=== PATIENT | male | born 1940 | race Caucasian/White ===

== ENCOUNTER 2023-08-28 13:32 | Outpatient (CLI) | payer MEDICARE, SELFPAY | END 2023-08-28 13:33 | disposition home or self-care (01) | PROVIDERS: PCP Family Medicine; Visit Provider Family Medicine | DX: R63.4 Abnormal weight loss (principal); I10 Essential (primary) hypertension; M17.0 Bilateral primary osteoarthritis of knee; I48.11 Longstanding persistent atrial fibrillation; R53.1 Weakness; Z13.29 Encounter for screening for other suspected endocrine disorder | CPT/HCPCS: 80048; 80076; 82607; 84439; 84443 ==

== ENCOUNTER 2024-01-01 12:25 | Outpatient (CLI) | payer MEDICARE, SELFPAY | END 2024-01-01 12:26 | disposition home or self-care (01) | PROVIDERS: PCP Family Medicine; Visit Provider Family Medicine | DX: I48.91 Unspecified atrial fibrillation (principal); M10.9 Gout, unspecified | CPT/HCPCS: 84550; 85610 ==

== ENCOUNTER 2024-11-12 13:57 | Outpatient (CLI) | payer MEDICARE, SELFPAY | END 2024-11-12 13:58 | disposition home or self-care (01) | PROVIDERS: PCP Family Medicine; Visit Provider Family Medicine | DX: R94.6 Abnormal results of thyroid function studies (principal); I10 Essential (primary) hypertension | CPT/HCPCS: 80048; 84439; 84443 ==

== ENCOUNTER 2024-12-13 09:04 | Outpatient (CLI) | payer MEDICARE, SELFPAY | END 2024-12-13 09:05 | disposition home or self-care (01) | PROVIDERS: PCP Family Medicine; Visit Provider Internal Medicine | DX: R53.1 Weakness (principal); R19.5 Other fecal abnormalities | CPT/HCPCS: A0425; A0427 ==

== ENCOUNTER 2024-12-13 09:46 | Inpatient (IN) | payer MEDICARE, SELFPAY ==
[2024-12-13] VITALS (23 sets, daily range): BP systolic 76–131; BP diastolic 53–92; PULSE 92–118; RESP 16–22; TEMP 35.9–36.6; O2SAT 89–100; BMI 23.7; BMI 23.3
--- OUTSIDE RECORDS SUMMARY | 2024-12-13 09:50 | XMS_ITS | Clinical Summary ---
Author Organization [facility] Address [address] [place] [address] Care Team Providers Care Lead Man Over All Dies In [employer] Name Role Phone Elsewhere, Pcp Primary Care Provider Unavailabl e Source Comments Patient records contain information from all sites at [facility]. For routine questions regarding patient records, call [phone] during business hours, M-F 8:00 AM - 5:00 PM Central Time. Record requests for emergency care only can be directed to [phone] at any time.[facility] Allergies No known active allergies Medications warfarin (COUMADIN) 5 mg tablet Take 5 mg by mouth 3 (three) times a week. Take as directed per After Visit Summary. Monday, Mon, Mon Active warfarin (COUMADIN) 2.5 mg tablet Take 2.5 mg by mouth 4 (four) times a week. Take as directed per After Visit Summary. Tue, Thur, Sat, Sun Active quinapriL (ACCUPRIL) 5 mg tablet Take by mouth daily. Active colchicine (COLCRYS) 0.6 mg tablet Take 0.6 mg by mouth daily. 02/08/2022 Active dilTIAZem CD (CARDIZEM CD/CARTIA XT) 120 mg 24 hr capsule Take 120 mg by mouth daily. 04/06/2022 Active furosemide (LASIX) 40 mg tablet Take 40 mg by mouth daily. 04/27/2022 Active oxyCODONE-aceta minophen (PERCOCET) 5-325 mg per tablet Take 1 tablet by mouth every 6 (six) hours as needed. for pain 04/26/2022 Active predniSONE (DELTASONE) 20 mg tablet TAKE ONE TABLET BY MOUTH TWICE A DAY FOR FOUR DAYS THEN ONE TABLET DAILY FOR FOUR DAYS 02/08/2022 Active acetaminophen (TYLENOL) 500 mg tablet Take 500 mg by mouth every 6 (six) hours as needed for pain. Active Active Problems No known active problems Social History Tobacco Use Types Packs/Day Years Used Date Smoking Tobacco: Never Smokeless Tobacco: Never Alcohol Use Standard Drinks/Week Comments Yes 1 (1 standard drink = 0.6 oz pur e alcohol) Nutrition Answer Date Recorded Nutrition: EVOO Fat Source Unknown 04/15 Nutrition: Servings of Fruits/Vegetables per Day Not on file 04/15/2022 Dental Answer Date Recorded Dental: Regular Dentist Unknown 04/15/20 Sex and Gender Information Value Date Recorded Sex Assigned at Not on file Legal Sex Male 4:50 PM ELECTRONIC PUBLICATIONS SPECIALIST Gender Identity Not on file Sexual Orientation Not on file Last Filed Vital Signs Vital Sign Reading Time Taken Comments Blood Pressure 128/79 12/28/2023 1:27 AM ELECTRONIC PUBLICATIONS SPECIALIST Pulse 114 12/28/2023 1:27 AM ELECTRONIC PUBLICATIONS SPECIALIST Temperature 36 C (96.8 F) 12/28/2023 1:27 AM ELECTRONIC PUBLICATIONS SPECIALIST Respiratory Rate 18 12/28/2023 1:27 AM ELECTRONIC PUBLICATIONS SPECIALIST Oxygen Saturation 97% 12/28/2023 1:27 AM ELECTRONIC PUBLICATIONS SPECIALIST Inhaled Oxygen Concentration - - Weight 91.9 kg (202 lb 9.6 oz) 04/15/2022 12:33 PM CDT Height 190.5 cm (6' 3) 12/28/2023 1:40 AM ELECTRONIC PUBLICATIONS SPECIALIST Body Mass Index 24.66 04/15/2022 12:33 PM CDT Plan of Treatment Health Maintenance Due Date Last Done Comments Zoster Vaccines (1 of 2) 1988 RSV vaccine - (32-3 6 weeks) or 60+ years (1 - 1-dose 75+ series) 2013 Creatinine Level (Kidney Function Test) 04/15/2023 04/15/2022 Potassium Level 04/15/2023 04/15/2022 Sodium Level 04/15/2023 04/15/2022 COVID-19 Vaccine (4 - 2023-2 5 season) 2024 07/30/2021, 12/26/2020, 12/05/2020 Influenza Vaccine (#1) 2024 08/28/2023 Depression Screening (Annual PHQ-2) 10/23/2024 Fall Risk Screen (Annual) 10/23/2024 DTaP,Tdap,and Td Vaccines (3 - Td or Tdap) 04/16/2030 04/16/2020, 11/07/2008 Pneumococcal vaccine (50+ years) Completed 03/25/2016, 11/07/2008 IPV Vaccines Aged Out No longer eligi ble based on patient's age to complete this topic Procedures Procedure Name Priority Date/Time Associated Diagnosis Comments BASIC METABOLIC PANEL, S/P STAT 04/15/2022 1:09 PM CDT from Last 3 Months or Most Recently Relevant to Health Maintenance Results * Basic Metabolic Panel (04/15/2022 1:09 PM CDT) Potassium, P 4.3 3.6 - 5.2 mmol/L 04/15/2022 1:30 PM CDT NPRG Sodium, P 138 135 - 145 mmol/L 04/15/2022 1:30 PM CDT NPRG Chloride, P 99 98 - 107 mmol/L 04/15/2022 1:30 PM CDT NPRG Bicarbonate, P 28 22 - 29 mmol/L 04/15/2022 1:30 PM CDT NPRG Anion Gap, P 11 7 - 15 04/15/2022 1:30 PM CDT NPRG BUN (Blood Urea Nitrogen), P 22 8 - 24 mg/dL 04/15/2022 1:30 PM CDT NPRG Creatinine 1.05 0.74 - 1.35 mg/dL 04/15/2022 1:30 PM CDT NPRG eGFR-Black/Afric an Azerbaijani 76 >=60 mL/min/BSA 04/15/2022 1:30 PM CDT NPRG Comment: ----ADDITIONAL INFORMATION---- Estimated GFR calculated using the 2009 CKD_EPI creatinine equation. eGFR Non-Black/Anju n Azerbaijani 65 >=60 mL/min/BSA 04/15/2022 1:30 PM CDT NPRG Comment: ----ADDITIONAL INFORMATION---- Estimated GFR calculated using the 2009 CKD_EPI creatinine equation. Calcium, Total, P 9.5 8.8 - 10.2 mg/dL 04/15/2022 1:30 PM CDT NPRG Glucose, P 113 70 - 140 mg/dL 04/15/2022 1:30 PM CDT NPRG Blood (Blood, Venous) 04/15/2022 1:09 PM CDT 04/15/2022 1:12 PM CDT us Jimmy Treadwell M.D. LAB BLOOD ADD-ON Final Resu lt [facility] [address] [place] [address], [place] NPRG [facility] [address] [place] [address] from Last 3 Months or Most Recently Relevant to Health Maintenance Insurance [facility] Care Teams Lead Man Over All Dies In [employer] Relationship Specialty Start Date End Date Elsewhere, Pcp PCP - General Internal Medicine 04/15/22
--- NOTE | 2024-12-13 10:05 | ED.GENADULT ---
HPI - General Adult General Chief complaint: Diarrhea Stated complaint: Dehydration Time Seen by Provider: 12/13/24 09:52 History of Present Illness HPI narrative: Patient is a 84-year-old gentleman who lives alone. He is anticoagulated due to atrial fibrillation. He developed diarrhea and loose stools overnight. He had no nausea or vomiting no overt abdominal pain. He has had no changes diet recently. He was very concerned as he noted the stool to be a maroon color as the diarrhea progressed. Patient did not lose consciousness or become lightheaded. Patient otherwise been in his usual state of health. There has been no changes in his medications. Room patient takes Coumadin daily. After calling his son is done directed ambulance to [facility] with and they brought him to the emergency room. He is noted to be mildly tachycardic with a pulse of 110 and a blood pressure roughly 100/50. He has had no further loose stools since arriving. He is feeling fine. He did get some normal saline EN route. Related Data Home Medications ?Medication ?Instructions ?Recorded ?Confirmed furosemide 40 mg tablet 40 mg PO DAILY 12/13/24 12/13/24 lisinopril 10 mg tablet 10 mg PO DAILY 12/13/24 12/13/24 Previous Rx's ?Medication ?Instructions ?Recorded warfarin 5 mg tablet 2.5 - 5 mg PO DAILY #100 tabs 08/06/24 carvedilol 12.5 mg tablet 12.5 mg PO BID #180 tabs 11/12/24 diltiazem HCl 120 mg 120 mg PO DAILY #90 ea 11/12/24 capsule,extended release 24 hr Allergies Allergy/AdvReac Type Severity Reaction Status Date / Time No Known Drug Allergies Allergy Verified 12/13/24 10:01 Review of Systems Status of ROS: Reports: 10 or more systems reviewed and unremarkable except as noted in History and below [facility] Medical History Alcohol abuse ?F10.10 - Alcohol abuse, uncomplicated (ICD-10) Atrial fibrillation ?I48.91 - Unspecified atrial fibrillation (ICD-10) Hypertension ?I10 - Essential (primary) hypertension (ICD-10) Congestive heart failure ?I50.9 - Heart failure, unspecified (ICD-10) Peripheral neuropathy ?G62.9 - Polyneuropathy, unspecified (ICD-10) DJD (degenerative joint disease) of knee ?M17.10 - Unilateral primary osteoarthritis, unspecified knee (ICD-10) Rheumatoid arthritis ?M06.9 - Rheumatoid arthritis, unspecified (ICD-10) Hearing loss in left ear ?H91.92 - Unspecified hearing loss, left ear (ICD-10) Gout ?M10.9 - Gout, unspecified (ICD-10) Ascending aorta dilatation ?I77.810 - Thoracic aortic ectasia (ICD-10) Edema ?R60.9 - Edema, unspecified (ICD-10) Pelvis fracture ?S32.9XXA - Fracture of unspecified parts of lumbosacral spine and pelvis, initial encounter for closed fracture (ICD-10) Surgical History Status post mastoidectomy ?Z90.89 - Acquired absence of other organs (ICD-10) S/P inguinal hernia repair ?Z98.890 - Other specified postprocedural states (ICD-10) ?Z87.19 - Personal history of other diseases of the digestive system (ICD-10) S/P hemorrhoidectomy ?Z98.890 - Other specified postprocedural states (ICD-10) ?Z87.19 - Personal history of other diseases of the digestive system (ICD-10) S/P cataract extraction ?Z98.49 - Cataract extraction status, unspecified eye (ICD-10) Social History What is your current living situation?: I presently have a place to live In the past 12 months, utilities in danger of being shut off: no In past 12 months, lack of transportation kept you from medical appts, meetings, work, or getting things needed for daily living: no In the past 12 mos, have been you worried that your food would run out before you had money to buy more?: never true In the past 12 mos, the food you bought just didn't last and you didn't have money to buy more?: never true Smoking Status: Former smoker How often do you have a drink containing alcohol: 2-4 times a month How many standard drinks containing alcohol do you have on a typical day: 1 or 2 How often do you have six or more drinks on one occasion: Never AUDIT-C Alcohol total score: 2 Non-prescribed substance use: denies use How often does anyone, including family, friends and others, physically hurt you: never How often does anyone, including family, friends and others, insult or talk down to you: never How often does anyone, including family, friends and others, threaten you with harm: never How often does anyone, including family, friends and others, scream or curse at you: never Exam Narrative: Exam Narrative: EXAM GENERAL: Patient appears comfortable and well. EYES: No scleral icterus. ENT: Tympanic membranes and oropharynx normal. THYROID: no thyroid nodules or thyromegaly. LYMPH: No supraclavicular or cervical lymphadenopathy. SKIN: Visible skin seen during exam normal or with benign process only. EXT: Chronic appearing lower extremity edema 1+ bilaterally. HEART: Regular rate distant heart tones. LUNGS: Clear to auscultation bilaterally with no crackles or wheezes. ABD: Soft, non tender, non distended. PSYCH: Good eye contact, speech is not pressured. Const: Vital Signs, click to edit/add: Vital Signs - 24 hr 12/13/24 09:50 12/13/24 09:58 12/13/24 10:00 Temperature 96.6 F L Pulse Rate 107 H Pulse Rate [Pulse Oximeter] 92 Respiratory Rate 16 Blood Pressure 113/73 Blood Pressure [Ri ght Upper Arm] 113/73 Pulse Oximetry 98 98 Oxygen Delivery Me od Room Air 12/13/24 10:15 12/13/24 10:30 12/13/24 10:35 Temperature Pulse Rate 116 H 97 101 H Pulse Rate [Pulse Oximeter] Respiratory Rate 16 Blood Pressure 100/72 Blood Pressure [Ri ght Upper Arm] Pulse Oximetry 93 98 98 Oxygen Delivery Ms thod 12/13/24 10:36 12/13/24 10:45 12/13/24 11:00 Temperature Pulse Rate 107 H 104 H 104 H Pulse Rate [Pulse Oximeter] Respiratory Rate Blood Pressure Blood Pressure [Ri ght Upper Arm] Pulse Oximetry 95 97 100 Oxygen Delivery Ms thod 12/13/24 11:02 12/13/24 11:15 Temperature Pulse Rate 118 H 100 Pulse Rate [Pulse Oximeter] Respiratory Rate Blood Pressure 106/76 Blood Pressure [Ri ght Upper Arm] Pulse Oximetry 89 97 Oxygen Delivery Me thod Course Course ED Course: We will begin evaluation with CBC PT INR comprehensive metabolic panel and begin hydration. Vital Signs Vital signs: Initial Vital Signs Temperature 96.6 F L 12/13/24 09:50 Temperature Source Temporal Artery Scan 12/13/24 09:50 Pulse Rate 92 12/13/24 09:50 Respiratory Rate 16 12/13/24 09:50 Blood Pressure 113/73 12/13/24 09:50 Blood Pressure Mean 86 12/13/24 09:50 Pulse Oximetry 98 12/13/24 09:50 Oxygen Delivery Method Room Air 12/13/24 09:50 Vital Signs Temperature 96.6 F L 12/13/24 09:50 Pulse Rate 92 12/13/24 09:50 Respiratory Rate 16 12/13/24 09:50 Blood Pressure 113/73 12/13/24 09:50 Pulse Oximetry 98 12/13/24 09:50 Oxygen Delivery Method Room Air 12/13/24 09:50 Temperature 96.6 F L 12/13/24 09:50 Pulse Rate 100 12/13/24 11:15 Respiratory Rate 16 12/13/24 10:35 Blood Pressure 106/76 12/13/24 11:02 Pulse Oximetry 97 12/13/24 11:15 Oxygen Delivery Method Room Air 12/13/24 09:50 Medical Decision Making MDM Narrative Medical decision making narrative: Patient is a 84-year-old gentleman who woke with a diarrhea that turned bloody overnight. He does take Coumadin for atrial fibrillation. We did send off an INR found to be 4.0. Also noted on his blood work was a hemoglobin of 9.9 and a potassium of 6.0. Month certain that that is an accurate potassium and should be repeated. We have given him 1 L of normal saline. I have not done a CT scan as patient has no abdominal pain. This point I do think that the patient is medically stable but does need hospitalization. I did review the case with hospitalist and they have graciously accepted to take over care. Lab Data Labs: Lab Results 12/13/24 Range/Units 10:13 WBC 9.13 (4.50-11.00) K/uL RBC 2.59 L (4.30-5.90) m/uL Hgb 9.9 L (13.5-17.5) gm/dL Hct 30.3 L (37.0-53.0) % MCV 117 H (80-100) fL MCH 38 H (26-34) pg MCHC 33 (32-36) gm/dL RDW Coeff of Daniela 14.1 (11.5-15.5) % Plt Count 193 (140-440) K/uL Neut % (Auto) 69.3 (42.0-72.0) % Lymph % (Auto) 21.7 (20-44) % Evangeline % (Auto) 8.2 (0.0-11.0) % Eos % (Auto) 0.4 (0.0-7.0) % Baso % (Auto) 0.2 (0.0-3.0) % Neut # (Auto) 6.32 (1.7-7.0) K/uL Lymph # (Auto) 1.98 (0.90-2.90) K/uL Evangeline # (Auto) 0.70 (0.00-0.90) K/UL Eos # (Auto) 0.04 (0.00-0.50) K/uL Baso # (Auto) 0.02 (0.00-0.30) K/uL Abs Immat Gran (auto) 0.02 (0.00-0.30) K/uL Imm/Tot Granulo (auto) 0.2 % INR 4.00 H (0.91-1.10) Sodium 136 (135-149) mmol/L Potassium 6.0 H (3.6-5.1) mmol/L Chloride 105 (96-114) mmol/L Carbon Dioxide 25 (20-32) mmol/L Anion Gap 6 L (7-15) mEq/L BUN 63 H (7-30) mg/dL Creatinine 1.2 (0.5-1.5) mg/dL Estimated Creat Clear 52.81 Estimated GFR 59 ml/min Glucose 141 H (60-115) mg/dL Calcium 8.4 (8.4-10.6) mg/dL Total Bilirubin 0.5 (0.1-1.5) mg/dL AST 19 (12-35) U/L ALT 11 (4-50) U/L Alkaline Phosphatase 50 (40-150) U/L Total Protein 5.8 L (6.0-8.3) g/dL Albumin 3.3 (3.3-5.0) g/dL Discharge Plan Discharge Clinical Impression: GI bleed Patient Disposition: Admitted As Observation Condition: Stable Activity Level: Other Discharge Diet: Other Prescriptions: No Action carvedilol 12.5 mg tablet 12.5 mg PO BID Qty: 180 3RF diltiazem HCl 120 mg capsule,extended release 24hr 120 mg PO DAILY Qty: 90 3RF furosemide 40 mg tablet 40 mg PO DAILY lisinopril 10 mg tablet 10 mg PO DAILY warfarin 5 mg tablet 2.5 - 5 mg PO DAILY Qty: 100 3RF Protocol: Dose Management Condition: Monday Dose/Route: 2.5 mg Instruction: 0.5 x 5 mg tablets Condition: Monday Dose/Route: 5 mg Instruction: 1 x 5 mg tablet Condition: Monday Dose/Route: 2.5 mg Instruction: 0.5 x 5 mg tablets Condition: Monday Dose/Route: 5 mg Instruction: 1 x 5 mg tablet Condition: Dose/Route: 2.5 mg Instruction: 0.5 x 5 mg tablets Condition: Monday Dose/Route: 5 mg Instruction: 1 x 5 mg tablet Condition: Monday Dose/Route: 2.5 mg Instruction: 0.5 x 5 mg tablets Protocol Text: Adjustment Start Date: 02/08/24 INR Value: 2.4 INR Date: 02/08/24 Recheck Date: 03/07/24 Rx Instructions: Guillen 2.5 MG, M 5 MG, Tu 2.5 MG, W 5 MG, Th 2.5 MG, F 5 MG, Sa 2.5 MG Follow Up/Referrals: Calos Reddy MD [Primary Care Provider] - Stand Alone Forms: [employer] Info Instructions
[2024-12-13 10:26] LABS: Basophils Absolute Auto 0.02 K/uL (0.00-0.30); Basophils Percent Auto 0.2 % (0.0-3.0); Eosinophils Absolute Auto 0.04 K/uL (0.00-0.50); Eosinophils Percent Auto 0.4 % (0.0-7.0); Hematocrit 30.3 % (37.0-53.0); Hemoglobin* 9.9 gm/dL (13.5-17.5); Immature Granulocytes Abs Auto 0.02 K/uL (0.00-0.30); Immature Granulocytes Pct Auto 0.2 %; Lymphocytes Absolute Auto 1.98 K/uL (0.90-2.90); Lymphocytes Percent Auto 21.7 % (20-44); Mean Corpuscular HGB Conc 33 gm/dL (32-36); Mean Corpuscular Hemoglobin 38 pg (26-34); Mean Corpuscular Volume 117 fL (80-100); Monocytes Percent Auto 8.2 % (0.0-11.0); Neutrophils Absolute Auto 6.32 K/uL (1.7-7.0); Neutrophils Percent Auto 69.3 % (42.0-72.0); Platelet Count* 193 K/uL (140-440); RDW Coefficient of Variation % 14.1 % (11.5-15.5); Red Blood Count 2.59 m/uL (4.30-5.90); White Blood Count* 9.13 K/uL (4.50-11.00)
--- OUTSIDE RECORDS SUMMARY | 2024-12-13 10:29 | XMS_ITS | Clinical Summary ---
Author Organization [facility] Address [address] [place] [id number] Care Team Providers Care Muff Winder Name Role Phone Elsewhere, Pcp Primary Care Provider Unavailabl e Source Comments Patient records contain information from all sites at [facility]. For routine questions regarding patient records, call [phone] during business hours, M-F 8:00 AM - 5:00 PM Central Time. 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 Gender Identity Not on file Sexual Orientation Not on file Last Filed Vital Signs Vital Sign Reading Time Taken Comments Blood Pressure 128/79 12/28/2023 1:27 AM EQUIPMENT PROCESSOR Pulse 114 12/28/2023 1:27 AM EQUIPMENT PROCESSOR Temperature 36 C (96.8 F) 12/28/2023 1:27 AM EQUIPMENT PROCESSOR Respiratory Rate 18 12/28/2023 1:27 AM EQUIPMENT PROCESSOR Oxygen Saturation 97% 12/28/2023 1:27 AM EQUIPMENT PROCESSOR Inhaled Oxygen Concentration - - Weight 91.9 kg (202 lb 9.6 oz) 04/15/2022 12:33 PM CDT Height 190.5 cm (6' 3) 12/28/2023 1:40 AM EQUIPMENT PROCESSOR Body Mass Index 24.66 04/15/2022 12:33 PM [...] 04/15/2022 1:30 PM CDT NPRG eGFR-Black/Afric an Ecuadorean 76 >=60 mL/min/BSA 04/15/2022 1:30 PM CDT NPRG Comment: ----ADDITIONAL INFORMATION---- Estimated GFR calculated using the 2009 CKD_EPI creatinine equation. eGFR Non-Black/Anju n Ecuadorean 65 >=60 mL/min/BSA 04/15/2022 1:30 PM CDT [...] M.D. LAB BLOOD ADD-ON Final Resu lt [facility] [address] [place] [address], [place] NPRG [facility] [address] [place] [address] from Last 3 Months or Most Recently Relevant to Health Maintenance Insurance [facility] Care Teams Muff Winder Relationship Specialty Start Date End Date Elsewhere, Pcp PCP - General Internal Medicine 04/15/22
[2024-12-13 10:30] LABS: Slide Review Reflex No
[2024-12-13 10:38] LABS: Albumin* 3.3 g/dL (3.3-5.0); Chloride* 105 mmol/L (96-114); Sodium* 136 mmol/L (135-149)
[2024-12-13 10:41] LABS: Alanine Aminotransferase* 11 U/L (4-50); Alkaline Phosphatase* 50 U/L (40-150); Anion Gap 6 mEq/L (7-15); Aspartate Amino Transferase* 19 U/L (12-35); Bilirubin Total* 0.5 mg/dL (0.1-1.5); Blood Urea Nitrogen* 63 mg/dL (7-30); Carbon Dioxide* 25 mmol/L (20-32); Creatinine* 1.2 mg/dL (0.5-1.5); Est. Creatinine Clearance* 52.81; Estimated Glomerular Filt Rate 59 ml/min; Glucose* 141 mg/dL (60-115); Prothrombin Time 40.3 Seconds; Total Protein* 5.8 g/dL (6.0-8.3)
[2024-12-13 10:42] LABS: Calcium* 8.4 mg/dL (8.4-10.6)
[2024-12-13] MEDS: 0.9 % SODIUM CHLORIDE 500 ML 500 ML IV (11:38)
[2024-12-13 11:51] LABS: Fecal Occult Blood* Positive (Negative)
[2024-12-13 13:57] LABS: Hemoglobin* 9.6 gm/dL (13.5-17.5)
[2024-12-13 14:04] LABS: Magnesium* 1.7 mg/dL (1.5-2.6); Phosphorus* 2.9 mg/dL (2.5-4.5)
[2024-12-13 14:09] LABS: Chloride* 107 mmol/L (96-114); Sodium* 138 mmol/L (135-149)
[2024-12-13 14:10] LABS: Potassium* 5.2 mmol/L (3.6-5.1)
[2024-12-13 14:12] LABS: Anion Gap 6 mEq/L (7-15); Carbon Dioxide* 25 mmol/L (20-32); Creatinine* 1.1 mg/dL (0.5-1.5); Est. Creatinine Clearance* 56.05; Estimated Glomerular Filt Rate 65 ml/min
[2024-12-13 14:13] LABS: Blood Urea Nitrogen* 66 mg/dL (7-30); Calcium* 8.2 mg/dL (8.4-10.6); Glucose* 133 mg/dL (60-115)
--- NOTE | 2024-12-13 14:15 | PM.IMHP1 ---
Hospitalist- H&P: HPI History of Present Illness Date Seen: 12/13/24 Chief complaint: Dehydration Narrative: Vinnie Shaw is a 84 year old male past medical history significant for atrial fibrillation on chronic anticoagulation, hypertension, CHF, peripheral neuropathy, peripheral edema, DJD, RA, gout, ascending aortic dilatation, alcohol abuse is admitted to medical floor from the ED for further management acute GI bleed. Patient reports going to bed last night feeling his normal self. Awoke shortly after midnight with dark red bloody stools. Had at least 3 episodes, perhaps more, has last being around 8:00 a.m. when EMS arrived. Denies any abdominal pain or cramping associated with the stools. No abdominal pain yesterday. No abdominal pain currently. Denies any recent nausea. No vomiting. No change in urination. Denies headache or dizziness. Denies chest pain or shortness of breath. No recent or new cough. No worsening edema than usual. No change in usual peripheral neuropathies. Takes Coumadin 2 mg 4 days a week and 1 mg 3 days a week. His INR last month was 2.2. Has not recently been on antibiotics. No other changes in medications. He tells me that because he has had a sore on the roof of his mouth he has eaten more soft foods and liquids recently. This has since improved and he has returned to more normal diet. Was recently around a family member who had diarrhea. Otherwise denies travel. Nonsmoker. Drinks 2 brandies daily. Denies history of withdrawals or seizures. Lives alone in his own home in [place]. No longer drives due to his neuropathies. Has several children in the area his support him. Uses a walker at all times. . Wishes to be DNR/DNI - thinks he has signed papers. Review of Systems Narrative: REVIEW OF SYSTEMS: Complete review of systems performed and negative unless otherwise stated in HPI or below. [facility] Medical History Alcohol abuse ?F10.10 - Alcohol abuse, uncomplicated (ICD-10) Atrial fibrillation ?I48.91 - Unspecified atrial fibrillation (ICD-10) Hypertension ?I10 - Essential (primary) hypertension (ICD-10) Congestive heart failure ?I50.9 - Heart failure, unspecified (ICD-10) Peripheral neuropathy ?G62.9 - Polyneuropathy, unspecified (ICD-10) DJD (degenerative joint disease) of knee ?M17.10 - Unilateral primary osteoarthritis, unspecified knee (ICD-10) Rheumatoid arthritis ?M06.9 - Rheumatoid arthritis, unspecified (ICD-10) Hearing loss in left ear ?H91.92 - Unspecified hearing loss, left ear (ICD-10) Gout ?M10.9 - Gout, unspecified (ICD-10) Ascending aorta dilatation ?I77.810 - Thoracic aortic ectasia (ICD-10) Edema ?R60.9 - Edema, unspecified (ICD-10) Pelvis fracture ?S32.9XXA - Fracture of unspecified parts of lumbosacral spine and pelvis, initial encounter for closed fracture (ICD-10) Surgical History Status post mastoidectomy ?Z90.89 - Acquired absence of other organs (ICD-10) S/P inguinal hernia repair ?Z98.890 - Other specified postprocedural states (ICD-10) ?Z87.19 - Personal history of other diseases of the digestive system (ICD-10) S/P hemorrhoidectomy ?Z98.890 - Other specified postprocedural states (ICD-10) ?Z87.19 - Personal history of other diseases of the digestive system (ICD-10) S/P cataract extraction ?Z98.49 - Cataract extraction status, unspecified eye (ICD-10) Social History What is your current living situation?: I presently have a place to live Problems where you live: no known problems Problems where you live details: NA In the past 12 months, utilities in danger of being shut off: no In past 12 months, lack of transportation kept you from medical appts, meetings, work, or getting things needed for daily living: no In the past 12 mos, have been you worried that your food would run out before you had money to buy more?: never true In the past 12 mos, the food you bought just didn't last and you didn't have money to buy more?: never true Highest level of school completed/degree received: high school graduate Smoking Status: Former smoker How often do you have a drink containing alcohol: 4 or more times a week Alcohol type: hard liquor Alcohol type details: yashira How many standard drinks containing alcohol do you have on a typical day: 1 or 2 How often do you have six or more drinks on one occasion: Never AUDIT-C Alcohol total score: 4 Non-prescribed substance use: denies use Caffeine: Yes (cofee in AM) How often does anyone, including family, friends and others, physically hurt you: never How often does anyone, including family, friends and others, insult or talk down to you: never How often does anyone, including family, friends and others, threaten you with harm: never How often does anyone, including family, friends and others, scream or curse at you: never service: No Meds Home Medications and Allergies Home Medications ?Medication ?Instructions ?Recorded ?Confirmed ?Type furosemide 40 mg tablet 40 mg PO DAILY 12/13/24 12/13/24 History lisinopril 10 mg tablet 10 mg PO DAILY 12/13/24 12/13/24 History Allergies Allergy/AdvReac Type Severity Reaction Status Date / Time No Known Drug Allergies Allergy Verified 12/13/24 10:01 Exam Narrative: Exam Narrative: PHYSICAL EXAM General: Pleasant, conversant, NAD HEENT: Normocephalic, atraumatic, sclera white, EOMI, oral mucosa moist Cardiovascular: IRRR, +2 pitting edema Pulmonary: CTA bilaterally without rhonchi, rales, expiratory wheezes. No dyspnea on room air Abdominal: Soft, nondistended, NTTP, no guarding, no focal findings Neurological: Alert, answering questions appropriately, cranial nerves intact, no focal findings Extremities: No gross joint deformity or swelling. AROMI. Neurovascularly intact Skin: Warm, dry. Const: Vital Signs, click to edit/add: Vital Signs - 24 hr 12/13/24 09:50 12/13/24 09:58 12/13/24 10:00 Temperature 96.6 F L Pulse Rate 107 H Pulse Rate [Pulse Oximeter] 92 Respiratory Rate 16 Blood Pressure 113/73 Blood Pressure [Le ft Arm] Blood Pressure [Ri ght Upper Arm] 113/73 Pulse Oximetry 98 98 Oxygen Delivery Me thod Room Air 12/13/24 10:15 12/13/24 10:30 12/13/24 10:35 Temperature Pulse Rate 116 H 97 101 H Pulse Rate [Pulse Oximeter] Respiratory Rate 16 Blood Pressure 100/72 Blood Pressure [Le ft Arm] Blood Pressure [Ri ght Upper Arm] Pulse Oximetry 93 98 98 Oxygen Delivery Me thod 12/13/24 10:36 12/13/24 10:45 12/13/24 11:00 Temperature Pulse Rate 107 H 104 H 104 H Pulse Rate [Pulse Oximeter] Respiratory Rate Blood Pressure Blood Pressure [Le ft Arm] Blood Pressure [Ri ght Upper Arm] Pulse Oximetry 95 97 100 Oxygen Delivery Me thod 12/13/24 11:02 12/13/24 11:15 12/13/24 11:30 Temperature Pulse Rate 118 H 100 110 H Pulse Rate [Pulse Oximeter] Respiratory Rate Blood Pressure 106/76 Blood Pressure [Le ft Arm] Blood Pressure [Ri ght Upper Arm] Pulse Oximetry 89 97 93 Oxygen Delivery Me thod 12/13/24 11:45 12/13/24 12:00 12/13/24 12:02 Temperature Pulse Rate 116 H 101 H 108 H Pulse Rate [Pulse Oximeter] Respiratory Rate 18 Blood Pressure 116/92 H Blood Pressure [Le ft Arm] Blood Pressure [Ri ght Upper Arm] Pulse Oximetry 92 100 99 Oxygen Delivery Me thod 12/13/24 12:15 12/13/24 12:55 12/13/24 12:55 Temperature Pulse Rate 111 H Pulse Rate [Pulse Oximeter] 111 H Respiratory Rate 18 18 Blood Pressure Blood Pressure [Le ft Arm] 131/75 Blood Pressure [Ri ght Upper Arm] Pulse Oximetry 100 93 93 Oxygen Delivery Me thod Room Air Room Air Hospitalist - H&P: Result Labs Labs: Short CBC 12/13/24 12/13/24 Range/Units 10:13 13:51 WBC 9.13 (4.50-11.00) K/uL Hgb 9.9 L 9.6 L (13.5-17.5) gm/dL Hct 30.3 L (37.0-53.0) % Plt Count 193 (140-440) K/uL BMP 12/13/24 12/13/24 10:13 13:51 Sodium 136 138 Potassium 6.0 H 5.2 H Chloride 105 107 Carbon Dioxide 25 25 BUN 63 H 66 H Creatinine 1.2 1.1 Glucose 141 H 133 H Calcium 8.4 8.2 L Liver Function 12/13/24 Range/Units 10:13 Total Bilirubin 0.5 (0.1-1.5) mg/dL AST 19 (12-35) U/L ALT 11 (4-50) U/L Alkaline Phosphatase 50 (40-150) U/L Albumin 3.3 (3.3-5.0) g/dL Assessment and Plan Assessment and plan (1) GI bleed: Problem comment: - >3 loose bloody stools overnight without abdominal pain or cramping; last stool was 8:00 a.m. -suspected in setting of supratherapeutic INR -hemoglobin 9.9 in ED -> 9.6 on the floor. Continue Q 4 hour trending -HCT 30.3, MCH/MCV stable -INR 4.0, potassium 5.2, BUN 66 -mildly tachycardic, history of atrial fibrillation, EKG ordered -BP improving, systolics have been >100 -PPI -clears for now -continue IV hydration, monitoring for worsening fluid overload -GI pathogens, C diff, stool cultures ordered -consider CT abd/pelvis if develops pain or new/worsening sxs. Has not had a colonoscopy in years Status: Acute (2) Supratherapeutic INR: Problem comment: -INR 4.0, previously 2.2 on 11/12/2024 -possibly related to recent dietary changes, however difficult to say -hold Coumadin tonight -pharmacy to manage Status: Acute (3) Hyperkalemia: Problem comment: -potassium 6.0 in ED, improved to 5.2 on recheck on the floor -EKG ordered -continue to monitor Status: Acute (4) Atrial fibrillation: Problem comment: -on chronic anticoagulation -continue carvedilol and diltiazem -telemetry -usual Coumadin dosing is 2 mg 4 days weekly and 1 mg 3 days weekly - hold -pharmacy to manage Status: Acute (5) Hypertension: Problem comment: -continue home medications, monitoring in setting of volume loss Status: Acute (6) Congestive heart failure: Problem comment: -echocardiogram 01/22/2021: Final Impressions: 1. Mildly increased LV size, moderately increased wall thickness, low normal global systolic function with an estimated EF of 45 - 50%. 2. Right ventricular cavity size is moderately enlarged, global systolic RV function is mildly reduced. 3. Severely enlarged left atrium. 4. The aortic valve is sclerotic, no stenosis and trivial regurgitation. 5. The mitral valve is sclerotic, mild mitral regurgitation. 6. The aortic sinus is normal for age/sex/bsa with a maximal diameter of 3.7 cm. 7. 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 8. The inferior vena cava is dilated, respiratory size variation greater than 50%. -continue home Lasix, monitoring renal function Status: Acute (7) Peripheral neuropathy: Problem comment: -chronic. No longer drives Status: Acute (8) Alcohol abuse: Problem comment: -drinks 2 brandies daily -denies history of withdrawals or seizures -CIWA for now Status: Acute (9) Edema: Problem comment: -chronic, peripheral edema -continue home Lasix, monitoring Status: Acute Total Time Spent Total Time Spent: Today I spent 75 minutes seeing the patient, discussing the patient with ER staff, reviewing Expanse and Epic notes/diagnostics, discussing the care plan with our team that includes social work, PT/OT, pharmacy, RT, retirement and documenting my impressions and plan in the medical record.
--- NOTE | 2024-12-13 14:35 | PC.PHA ---
Warfarin consult note: Reason for warfarin: [A-fib] INR goal requested by the provider: [2-3] Most recent INR: [4.0 12/13/24] (date and result) Usual home dose (if any): [MON,WED, FRI = 5 MG, 2.5 MG ALL OTHER DAYS] Today's dose ordered: [NO WARFARIN TODAY] Vitamin K given: [0] date, time, and dose given Comments: [HAS HAD GI ISSUES]
[2024-12-13] MEDS: dilTIAZem 120 MG CAP.ER.24H PO (14:47)
[2024-12-13] MEDS: OMEPRAZOLE 20 MG CAPSULE DR 40 MG PO (15:19)
[2024-12-13] MEDS: 0.9 % SODIUM CHLORIDE 1000 ml 1,000 ML 100 ML IV (15:19)
[2024-12-13] MEDS: METOPROLOL TARTRATE 1 MG/ML inj 5 MG IVP (18:05)
[2024-12-13 18:13] LABS: Hemoglobin* 9.2 gm/dL (13.5-17.5)
--- NOTE | 2024-12-13 18:45 | PC.NURSE ---
Nursing Care Hours: [id number] Pt this shift arrived from ED on stretcher. Able to stand for weight. Stand and pivot to recliner. Pt alert and oriented, no c/o pain. BP and spo2 stable. Afib with RVR noted on pulse ox and confirmed with EKG. Up to BS with ax1 and HR increased to 150's. Pt denied symptoms. PRN antiarrhythmic given IV, effective and HR decreased to 80s still afib. One small BM, dark red and sticky. Stool sample dropped off to lab. Tolerating clear liquid diet. Abdomen soft but distended and non tender. Pt reports a sore to mouth under dentures. General Surgery Physician Assistant did not observe this. Pt states because of sore he has been eating less over the last week. Fluids running via IV. Skin dry and flaky over body. After use of [employer] technical document writer noted mottled bilat LE, warm to touch. BP remained stable. Edema noted in bilat ankles and feet.
[2024-12-13 19:31] LABS: C.Difficile Negative (Negative); CDIFFEPI 027 PRESUMPTIVE NEGATIVE (Negative)
[2024-12-13] MEDS: carvediloL 6.25 MG TABLET 12.5 MG PO (21:15)
[2024-12-13 22:31] LABS: Hemoglobin* 7.9 gm/dL (13.5-17.5)
[2024-12-13] MEDS: 0.9 % SODIUM CHLORIDE 1000 ml 1,000 ML 2000 ML IV (23:55)
[2024-12-14] VITALS (41 sets, daily range): BP systolic 79–134; BP diastolic 51–109; PULSE 91–112; RESP 16–20; TEMP 35.9–36.4; O2SAT 90–99
[2024-12-14] MEDS: PHYTONADIONE (VIT K1) 5 MG in 0.9 % SODIUM CHLORIDE 50 ml 50 ML 100 MG IVPB (00:07)
[2024-12-14] MEDS: ACETAMINOPHEN 500 MG TABLET 1000 MG PO (00:14)
[2024-12-14] MEDS: 0.9 % SODIUM CHLORIDE 1000 ml 1,000 ML 100 ML IV (00:16)
--- NOTE | 2024-12-14 00:52 | PM.CCEN ---
Critical Care Event Note Summary Date Seen: 12/14/24 Code activated: No Narrative: Vinnie had 3 bloody stools this afternoon/evening, Hgb fell to 7.9 He was moved to CCU status, given 5mg IV Vitamin K, 1U PRBCs has been ordered. While blood was being obtained, patient was hypotensive with a BP vikas of 76/53, P at that time 90-100s (had received his BB). Given 1L NS bolus prior to blood, BP improved to 110/70. Given h/o HFrEF, 20mg IV Lasix to be given with blood with continued close monitoring. Initiated transfer discussions, awaiting call backs with bed availability from [place] and [place] (placed on waiting list at [facility]). This case had a high probability of a clinically significant, sudden, or life threatening deterioration of this patient's condition which required my full and direct attention, intervention and personal management. Critical care time: 30 - 74 mins
[2024-12-14] MEDS: FUROSEMIDE 10 MG/ML inj 20 MG IV (01:04)
[2024-12-14] MEDS: SODIUM CHLORIDE 0.9 % (FLUSH) 10 ML SYRINGE 5 ML IVF ×4 (01:06→20:42)
[2024-12-14 04:30] LABS: Basophils Absolute Auto 0.03 K/uL (0.00-0.30); Basophils Percent Auto 0.4 % (0.0-3.0); Eosinophils Absolute Auto 0.03 K/uL (0.00-0.50); Eosinophils Percent Auto 0.4 % (0.0-7.0); Hematocrit 25.9 % (37.0-53.0); Hemoglobin* 8.4 gm/dL (13.5-17.5); Immature Granulocytes Abs Auto 0.01 K/uL (0.00-0.30); Immature Granulocytes Pct Auto 0.1 %; Lymphocytes Absolute Auto 2.13 K/uL (0.90-2.90); Lymphocytes Percent Auto 25.6 % (20-44); Mean Corpuscular HGB Conc 32 gm/dL (32-36); Mean Corpuscular Hemoglobin 37 pg (26-34); Mean Corpuscular Volume 113 fL (80-100); Monocytes Percent Auto 7.8 % (0.0-11.0); Neutrophils Absolute Auto 5.46 K/uL (1.7-7.0); Neutrophils Percent Auto 65.7 % (42.0-72.0); Platelet Count* 139 K/uL (140-440); RDW Coefficient of Variation % 17.5 % (11.5-15.5); White Blood Count* 8.31 K/uL (4.50-11.00)
[2024-12-14 04:32] LABS: Slide Review Reflex No
[2024-12-14 04:42] LABS: Chloride* 109 mmol/L (96-114); Sodium* 138 mmol/L (135-149)
[2024-12-14 04:45] LABS: Anion Gap 3 mEq/L (7-15); Blood Urea Nitrogen* 63 mg/dL (7-30); Carbon Dioxide* 26 mmol/L (20-32); Est. Creatinine Clearance* 61.65; Estimated Glomerular Filt Rate 73 ml/min
[2024-12-14 04:46] LABS: Calcium* 8.1 mg/dL (8.4-10.6); Glucose* 115 mg/dL (60-115)
[2024-12-14 04:57] LABS: INR 1.84 (0.91-1.10); Prothrombin Time 22.3 Seconds
--- NOTE | 2024-12-14 05:00 | CRLHL7_ITS ---
For Patients: As a result of the 21st Century Cures Act, medical imaging exams and procedure reports are released immediately into your electronic medical record. You may view this report before your referring provider. If you have questions, please contact your health care provider. INDICATION: Lower GI bleeding. COMPARISON: None TECHNIQUE: CT examination of the abdomen and pelvis was performed before and after the uneventful intravenous administration of 98 cc of Isovue 370. Thin section axial images were obtained from the lung bases through the pubic symphysis. Oral contrast was not administered. A multiphase study was performed as per GI bleeding protocol. This includes a noncontrast study, an arterial phase study and delayed imaging. Please note that all CT scans at this facility use dose modulation, iterative reconstruction, and/or weight-based dosing when appropriate to reduce radiation dose to as low as reasonably achievable. FINDINGS: LUNG BASES: Bibasilar atelectasis.The heart is significantly enlarged at the lung bases. This is multichamber enlargement but notably involves the right atrium and right ventricle. LIVER/BILIARY SYSTEM:The liver is normal in size and configuration. There is no focal mass and there is no intra- or extra hepatic biliary ductal dilatation.The gallbladder is difficult to evaluate due to motion. ADRENALS: Normal KIDNEYS, URETERS and BLADDER:Somewhat blurred by motion artifact. No solid mass. There are a combination of simple cysts and 1 hyperdense cyst on the right. No suspicious renal cortical finding. No hydronephrosis or hydroureter. The bladder is distended. The prostate is moderately enlarged SPLEEN:Normal appearance. PANCREAS: Appears normal. RETROPERITONEUM and MESENTERY: There is no mass, adenopathy or aortic aneurysm. Atherosclerotic vascular calcification GASTROINTESTINAL SYSTEM: Fecal retention. Diverticulosis. No diverticulitis, colitis or obstruction. No evidence of mesenteric ischemia. VASCULAR: Atherosclerotic vascular calcifications. No aneurysm. No high-grade stenosis involving any of the large branch vessels. No evidence of active GI bleeding during the time course of this exam. PELVIS: No free fluid or adenopathy. OSSEOUS STRUCTURES and ABDOMINAL WALL: Healing right superior pubic ramus fracture. Subacute right inferior pubic ramus fracture. Degenerative changes the spine.Small fat containing inguinal hernias OTHER: No free fluid or free air. IMPRESSION: 1. There is no evidence of active GI bleeding during the time course of this exam. 2. Mild fecal retention. Diverticulosis. No diverticulitis, colitis or obstruction. No evidence of mesenteric ischemia 3. There are nonacute appearing findings as discussed in the body of the report. Please review the comments regarding these findings Please note that all CT scans at this facility use dose modulation, iterative reconstruction, and/or weight-based dosing when appropriate to reduce radiation dose to as low as reasonably achievable. Dictated by Neftaly Boyd MD @ 12/14/2024 6:06:12 AM (Electronically Signed)
--- NOTE | 2024-12-14 06:39 | PC.NURSE ---
[id number] pt extremely tired during night, did not get a change to sleep much due to cares/interventions needing to be done. 1 unit blood transfused, pt tolerated well. only 1 small (approx 75cc) bloody stool this am at approx at 0615, denies N/V, chest pain, headache. does acknowledge lightheaded/dizziness with activity.
[2024-12-14 07:19] LABS: Basophils Absolute Auto 0.02 K/uL (0.00-0.30); Basophils Percent Auto 0.2 % (0.0-3.0); Eosinophils Absolute Auto 0.04 K/uL (0.00-0.50); Eosinophils Percent Auto 0.5 % (0.0-7.0); Hematocrit 26.2 % (37.0-53.0); Hemoglobin* 8.7 gm/dL (13.5-17.5); Immature Granulocytes Abs Auto 0.01 K/uL (0.00-0.30); Immature Granulocytes Pct Auto 0.1 %; Lymphocytes Absolute Auto 1.93 K/uL (0.90-2.90); Lymphocytes Percent Auto 23.1 % (20-44); Mean Corpuscular HGB Conc 33 gm/dL (32-36); Mean Corpuscular Hemoglobin 38 pg (26-34); Mean Corpuscular Volume 113 fL (80-100); Monocytes Percent Auto 7.9 % (0.0-11.0); Neutrophils Absolute Auto 5.71 K/uL (1.7-7.0); Neutrophils Percent Auto 68.2 % (42.0-72.0); Platelet Count* 146 K/uL (140-440); RDW Coefficient of Variation % 17.7 % (11.5-15.5); Red Blood Count 2.32 m/uL (4.30-5.90); White Blood Count* 8.37 K/uL (4.50-11.00)
[2024-12-14 07:21] LABS: Slide Review Reflex No
[2024-12-14] MEDS: OMEPRAZOLE 20 MG CAPSULE DR 40 MG PO (07:28)
[2024-12-14] MEDS: 0.9 % SODIUM CHLORIDE 500 ML 250 ML IV (07:29)
[2024-12-14 07:35] LABS: INR 1.51 (0.91-1.10); Prothrombin Time 19.2 Seconds
--- NOTE | 2024-12-14 07:42 | PC.NURSE ---
spoke with and updated patient son Danny, .
[2024-12-14] MEDS: FUROSEMIDE 10 MG/ML inj 20 MG IVP (08:21)
--- NOTE | 2024-12-14 08:53 | REH.OT ---
OT orders for eval and treat received. Per nsg, pt not appropriate to see d/t worsening medical status. Will hold at this time.
--- NOTE | 2024-12-14 08:59 | REH.PT ---
Per Charge Nurse, PT to hold today for medical reasons.
[2024-12-14 11:11] LABS: Hemoglobin* 10.6 gm/dL (13.5-17.5)
--- NOTE | 2024-12-14 12:45 | PM.IMPN1 ---
Progress Note: A&P Assessment and plan (1) GI bleed: Problem details: - >3 loose bloody stools overnight without abdominal pain or cramping; last stool was 5-6 am 12/14 -diverticular bleed suspected in setting of supratherapeutic INR -INR reversed 4.0 to 1.51 with vit K -PPI -clears for now -continue IV hydration, monitoring for worsening fluid overload -trend hemoglobin -GI pathogens, C diff, stool cultures ordered Status: Acute (2) Supratherapeutic INR: Problem details: -reversed. now 1.51 -we can bridge with lovenox once the bleeding has stopped as we restart coumadin Status: Acute (3) Hyperkalemia: Problem details: -resolved Status: Acute (4) Atrial fibrillation: Problem details: -on chronic anticoagulation -hold carvedilol and diltiazem in light of increased bleeding and hypotension overnight. -telemetry Status: Acute (5) Hypertension: Problem details: -holding home meds Status: Acute (6) Congestive heart failure: Problem details: -echocardiogram 01/22/2021: Final Impressions: 1. Mildly increased LV size, moderately increased wall thickness, low normal global systolic function with an estimated EF of 45 - 50%. 2. Right ventricular cavity size is moderately enlarged, global systolic RV function is mildly reduced. 3. Severely enlarged left atrium. 4. The aortic valve is sclerotic, no stenosis and trivial regurgitation. 5. The mitral valve is sclerotic, mild mitral regurgitation. 6. The aortic sinus is normal for age/sex/bsa with a maximal diameter of 3.7 cm. 7. 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 8. The inferior vena cava is dilated, respiratory size variation greater than 50%. -holding lasix in volume depletion. follow. Status: Acute (7) Peripheral neuropathy: Problem details: -chronic. No longer drives Status: Acute (8) Alcohol abuse: Problem details: -drinks 2 brandies daily -denies history of withdrawals or seizures -CIWA for now Status: Acute (9) Edema: Problem details: -chronic, peripheral edema Status: Acute Subjective Date Seen: 12/14/24 Interval history: Daily Progress Note - Hospital Medicine Day #: 2 CC: Lower GI bleed 24 HOUR UPDATE: Last evening patient had maroon stools in became hypotensive tachycardic with some moderate weakness. The patient was moved to the ICU, vitamin K, fluid bolus and 1 unit packed red blood cells were given. Patient stabilized over the inflatable buildings laminator hours of 12/14. Two more maroon stools were noted between 5 and 6:00 a.m.. Second unit of packed cells were administered. Vitals remained stable with a blood pressure of 110s to 120s and systolic. Pulses been in the 90s to low 100s but patient is not receiving his beta blockade and diltiazem for AFib currently. He has remained on room air. No respiratory distress. Afebrile. Notable Labs, Micro, Rads, Interventions: Hemoglobin on presentation 9.9, vikas thus far 7.9. Today at 11:00 a.m. 10.6. Baseline appears to be 13. No recent colonoscopy found GI bleed protocol for abdomen pelvic CT accomplished morning of 12/14 IMPRESSION: 1. There is no evidence of active GI bleeding during the time course of this exam. 2. Mild fecal retention. Diverticulosis. No diverticulitis, colitis or obstruction. No evidence of mesenteric ischemia 3. There are nonacute appearing findings as discussed in the body of the report. Please review the comments regarding these findings Objective: good color. alert. ALUTIIQ but no obvious delirium/dementia Vitals: see above Lungs: Clear. Cardiac: S1S2. Abdomen: soft; +BS Disposition/Potential discharge - home vs rehab depending on course of care Today I spent 50minutes seeing the patient, reviewing Expanse and EPIC notes/diagnostics, discussing the care plan with our care time that includes social work, PT/OT, pharmacy, RT, detention and documenting my impressions and plan in the medical record. ACP first 30 mins [id number] I went over options for care during this current hospitalization and explained the difference between palliative care and hospice care. I described the likelihood of returning to previous functioning and what the options are going forward for care. GO FAR SCORE 9% FOR WITNESSED CARDIAC ARREST. CODE STATUS DISCUSSED WITH FAMILY. DNR/DNI BUT MAY TRANSFER FOR ACUTE GI BLEED FOR SURGERY/INTERVENTIONS Exam Const: Vital Signs, click to edit/add: Vital Signs - 24 hr 12/13/24 12:55 12/13/24 12:55 12/13/24 14:34 Temperature Pulse Rate Pulse Rate [Pulse Oximeter] 111 H 118 H Respiratory Rate 18 18 22 Blood Pressure Blood Pressure [Le ft Arm] 131/75 131/75 Blood Pressure [Ri ght Arm] Pulse Oximetry 93 93 96 Oxygen Delivery Me thod Room Air Room Air Room Air 12/13/24 15:00 12/13/24 15:00 12/13/24 19:00 Temperature 97.4 F L 97.8 F Pulse Rate Pulse Rate [Pulse Oximeter] 118 H 118 H 110 H Respiratory Rate 22 22 18 Blood Pressure Blood Pressure [Le ft Arm] Blood Pressure [Ri ght Arm] 119/86 116/75 Pulse Oximetry 96 93 Oxygen Delivery Me thod Room Air Room Air 12/13/24 23:38 12/13/24 23:40 12/13/24 23:45 Temperature 97.0 F L Pulse Rate Pulse Rate [Pulse Oximeter] 93 101 H Respiratory Rate 20 20 Blood Pressure Blood Pressure [Le ft Arm] 76/53 L 85/57 L 89/53 L Blood Pressure [Ri ght Arm] Pulse Oximetry 99 96 Oxygen Delivery Me thod Room Air Room Air 12/14/24 00:00 12/14/24 00:15 12/14/24 00:30 Temperature Pulse Rate Pulse Rate [Pulse Oximeter] Respiratory Rate Blood Pressure Blood Pressure [Le ft Arm] 93/52 L 101/56 L 110/71 Blood Pressure [Ri ght Arm] Pulse Oximetry Oxygen Delivery Me thod 12/14/24 00:45 12/14/24 00:56 12/14/24 01:16 Temperature 97.0 F L 97.4 F L Pulse Rate 96 98 Pulse Rate [Pulse Oximeter] Respiratory Rate 20 20 Blood Pressure 100/63 103/60 Blood Pressure [Le ft Arm] 112/59 L Blood Pressure [Ri ght Arm] Pulse Oximetry 96 96 Oxygen Delivery Me thod Room Air Room Air 12/14/24 01:19 12/14/24 01:31 12/14/24 01:46 Temperature 96.6 F L Pulse Rate 96 104 H Pulse Rate [Pulse Oximeter] Respiratory Rate 20 Blood Pressure 105/73 Blood Pressure [Le ft Arm] 93/62 Blood Pressure [Ri ght Arm] Pulse Oximetry 97 Oxygen Delivery Me thod Room Air 12/14/24 02:00 12/14/24 02:16 12/14/24 02:46 Temperature 97.1 F L 97.0 F L Pulse Rate 96 101 H Pulse Rate [Pulse Oximeter] Respiratory Rate 18 18 Blood Pressure 116/85 115/78 Blood Pressure [Le ft Arm] 120/87 Blood Pressure [Ri ght Arm] Pulse Oximetry 97 95 Oxygen Delivery Me thod Room Air Room Air 12/14/24 02:50 12/14/24 03:07 12/14/24 03:45 Temperature 97.0 F L 97.0 F L Pulse Rate 91 Pulse Rate [Pulse Oximeter] 101 H 99 Respiratory Rate 18 18 16 Blood Pressure 115/66 Blood Pressure [Le ft Arm] 115/78 115/78 Blood Pressure [Ri ght Arm] Pulse Oximetry 95 98 96 Oxygen Delivery Me thod Room Air Room Air Room Air 12/14/24 07:00 12/14/24 07:31 12/14/24 07:43 Temperature 97.1 F L 97.6 F Pulse Rate 100 103 H Pulse Rate [Pulse Oximeter] 98 Respiratory Rate 18 18 Blood Pressure 128/79 Blood Pressure [Le ft Arm] 128/79 Blood Pressure [Ri ght Arm] Pulse Oximetry 99 99 Oxygen Delivery Me thod Room Air Room Air 12/14/24 07:43 12/14/24 07:45 12/14/24 08:15 Temperature 97.6 F 97.2 F L Pulse Rate 100 112 H Pulse Rate [Pulse Oximeter] 99 Respiratory Rate 18 18 18 Blood Pressure 118/79 128/81 Blood Pressure [Le ft Arm] Blood Pressure [Ri ght Arm] Pulse Oximetry 97 96 Oxygen Delivery Me thod Room Air Room Air 12/14/24 08:45 12/14/24 09:15 12/14/24 09:45 Temperature Pulse Rate 105 H 106 H Pulse Rate [Pulse Oximeter] Respiratory Rate Blood Pressure 120/101 H 131/109 H 134/89 Blood Pressure [Le ft Arm] Blood Pressure [Ri ght Arm] Pulse Oximetry 97 97 98 Oxygen Delivery Me thod Room Air Room Air Room Air 12/14/24 10:15 12/14/24 10:45 12/14/24 11:00 Temperature 97.2 F L 97.2 F L 97.2 F L Pulse Rate 107 H 93 Pulse Rate [Pulse Oximeter] 99 Respiratory Rate 18 18 18 Blood Pressure 127/78 118/76 Blood Pressure [Le ft Arm] 122/75 Blood Pressure [Ri ght Arm] Pulse Oximetry 98 90 98 Oxygen Delivery Me thod Room Air Room Air Room Air 12/14/24 11:12 12/14/24 11:55 12/14/24 12:00 Temperature 97.2 F L 97.2 F L Pulse Rate 103 H 96 97 Pulse Rate [Pulse Oximeter] Respiratory Rate 18 18 Blood Pressure 122/75 116/77 Blood Pressure [Le ft Arm] Blood Pressure [Ri ght Arm] Pulse Oximetry 98 98 Oxygen Delivery Me thod Room Air Room Air 12/14/24 12:01 Temperature Pulse Rate Pulse Rate [Pulse Oximeter] 99 Respiratory Rate 18 Blood Pressure Blood Pressure [Le ft Arm] Blood Pressure [Ri ght Arm] Pulse Oximetry Oxygen Delivery Me thod Labs Labs: Laboratory Results - last 24 hr 12/13/24 12/13/24 12/13/24 10:13 13:32 13:51 WBC RBC Hgb 9.6 L Hct MCV MCH MCHC RDW Coeff of Daniela Plt Count Neut % (Auto) Lymph % (Auto) Owen % (Auto) Eos % (Auto) Baso % (Auto) Neut # (Auto) Lymph # (Auto) [place] # (Auto) Eos # (Auto) Baso # (Auto) Abs Immat Gran (auto) Imm/Tot Granulo (auto) INR Sodium 138 Potassium 5.2 H Chloride 107 Carbon Dioxide 25 Anion Gap 6 L BUN 66 H Creatinine 1.1 Estimated Creat Clear 56.05 Estimated GFR 65 Glucose 133 H Calcium 8.2 L Phosphorus 2.9 Magnesium 1.7 Stl C. diff Tox B Gene Stl C. diff [id number]-NAP1-[id number] Lab Acknowledgement Test Added Blood Type Antibody Screen Crossmatch ([facility]) 12/13/24 12/13/24 12/13/24 18:00 18:06 21:59 WBC RBC Hgb 9.2 L 7.9 L* Hct MCV MCH MCHC RDW Coeff of Daniela Plt Count Neut % (Auto) Lymph % (Auto) [place] % (Auto) Eos % (Auto) Baso % (Auto) Neut # (Auto) Lymph # (Auto) [place] # (Auto) Eos # (Auto) Baso # (Auto) Abs Immat Gran (auto) Imm/Tot Granulo (auto) INR Sodium Potassium Chloride Carbon Dioxide Anion Gap BUN Creatinine Estimated Creat Clear Estimated GFR Glucose Calcium Phosphorus Magnesium Stl C. diff Tox B Gene Negative Stl C. diff [id number] PRESUMPTIVE NEGATIVE Lab Acknowledgement Blood Type O Positive Antibody Screen NEGATIVE Crossmatch ([facility]) See Detail 12/14/24 12/14/24 12/14/24 04:24 07:12 11:06 WBC 8.31 8.37 RBC 2.30 L 2.32 L Hgb 8.4 L 8.7 L 10.6 L Hct 25.9 L 26.2 L MCV 113 H 113 H MCH 37 H 38 H MCHC 32 33 RDW Coeff of Daniela 17.5 H 17.7 H Plt Count 139 L 146 Neut % (Auto) 65.7 68.2 Lymph % (Auto) 25.6 23.1 [place] % (Auto) 7.8 7.9 Eos % (Auto) 0.4 0.5 Baso % (Auto) 0.4 0.2 Neut # (Auto) 5.46 5.71 Lymph # (Auto) 2.13 1.93 [place] # (Auto) 0.60 0.70 Eos # (Auto) 0.03 0.04 Baso # (Auto) 0.03 0.02 Abs Immat Gran (auto) 0.01 0.01 Imm/Tot Granulo (auto) 0.1 0.1 INR 1.84 H 1.51 H Sodium 138 Potassium 5.0 Chloride 109 Carbon Dioxide 26 Anion Gap 3 L BUN 63 H Creatinine 1.0 Estimated Creat Clear 61.65 Estimated GFR 73 Glucose 115 Calcium 8.1 L Phosphorus Magnesium Stl C. diff Tox B Gene Stl C. diff [id number] Lab Acknowledgement Blood Type Antibody Screen Crossmatch ([facility])
[2024-12-14 18:19] LABS: Hemoglobin* 9.7 gm/dL (13.5-17.5)
--- NOTE | 2024-12-14 18:59 | PC.NURSE ---
[facility] Hours: [id number] Pt this shift calm and cooperative, alert and oriented. No c/o pain. 1 unit PRBC infused without issue. Lasix given and all cardiac and BP meds held. Pt up frequently to BSC to void. No BM or signs of bleeding this shift. Continues to be in A.fib, in and out of RVR and NVR. Stable spo2 on RA. One episode of hypotension while patient was sleeping. Pt did not even wake as screenplay writer applied cuff. When screenplay writer went to retake on the other arm, pt woke up and the following two BP were WNL and continue to be stable rest of shift. Decreased appetite. Did take in jello for dinner. IV from EMS started removed per policy.
[2024-12-15] VITALS (16 sets, daily range): BP systolic 94–111; BP diastolic 57–76; PULSE 88–116; RESP 16–20; TEMP 35.8–36.5; O2SAT 95–99
[2024-12-15] MEDS: OMEPRAZOLE 20 MG CAPSULE DR 40 MG PO (06:33)
[2024-12-15 06:50] LABS: Basophils Absolute Auto 0.03 K/uL (0.00-0.30); Basophils Percent Auto 0.4 % (0.0-3.0); Eosinophils Absolute Auto 0.14 K/uL (0.00-0.50); Eosinophils Percent Auto 2.1 % (0.0-7.0); Hematocrit 27.6 % (37.0-53.0); Hemoglobin* 9.1 gm/dL (13.5-17.5); Immature Granulocytes Abs Auto 0.01 K/uL (0.00-0.30); Immature Granulocytes Pct Auto 0.1 %; Lymphocytes Absolute Auto 1.91 K/uL (0.90-2.90); Lymphocytes Percent Auto 28.2 % (20-44); Mean Corpuscular HGB Conc 33 gm/dL (32-36); Mean Corpuscular Hemoglobin 36 pg (26-34); Mean Corpuscular Volume 108 fL (80-100); Monocytes Percent Auto 6.9 % (0.0-11.0); Neutrophils Absolute Auto 4.22 K/uL (1.7-7.0); Neutrophils Percent Auto 62.3 % (42.0-72.0); Platelet Count* 144 K/uL (140-440); RDW Coefficient of Variation % 19.5 % (11.5-15.5); Red Blood Count 2.56 m/uL (4.30-5.90); White Blood Count* 6.78 K/uL (4.50-11.00)
[2024-12-15 06:54] LABS: Slide Review Reflex No
--- NOTE | 2024-12-15 06:56 | PC.NURSE ---
-: pleasant and cooperative. No BM this shift. Calls for assistance with urinal. A x 1 Pivot. BPs on the softer side, stable, asymptomatic. Tele ? AFib with BBB, occasionally tachy w/ HR in 110s, occasional PVCs.
[2024-12-15 07:04] LABS: INR 1.26 (0.91-1.10); Prothrombin Time 16.7 Seconds
[2024-12-15 07:06] LABS: Albumin* 2.8 g/dL (3.3-5.0); Chloride* 107 mmol/L (96-114)
[2024-12-15 07:08] LABS: Bilirubin Total* 0.4 mg/dL (0.1-1.5); Carbon Dioxide* 26 mmol/L (20-32); Creatinine* 0.8 mg/dL (0.5-1.5); Est. Creatinine Clearance* 60.15; Estimated Glomerular Filt Rate 86 ml/min
[2024-12-15 07:09] LABS: Alanine Aminotransferase* 8 U/L (4-50); Alkaline Phosphatase* 42 U/L (40-150); Aspartate Amino Transferase* 17 U/L (12-35); Blood Urea Nitrogen* 37 mg/dL (7-30); Calcium* 8.6 mg/dL (8.4-10.6); Glucose* 86 mg/dL (60-115); Total Protein* 5.1 g/dL (6.0-8.3)
[2024-12-15 09:06] LABS: Anion Gap 6 mEq/L (7-15); Sodium* 139 mmol/L (135-149)
[2024-12-15] MEDS: carvediloL 6.25 MG TABLET 12.5 MG PO ×2 (10:15→20:30)
[2024-12-15] MEDS: SODIUM CHLORIDE 0.9 % (FLUSH) 10 ML SYRINGE 5 ML IVF ×4 (10:15→20:31)
[2024-12-15] MEDS: GLYCERIN SUPP (ADULT) 1 SUPP PR (12:19)
[2024-12-15] MEDS: bisacodyL 5 MG TABLET DR 10 MG PO (12:19)
--- NOTE | 2024-12-15 13:48 | PM.IMPN1 ---
Progress Note: A&P Assessment and plan (1) GI bleed: Problem details: -12/15 - prep for colonoscopy in the am -last maroon stool 5-6 am 12/14 -diverticular bleed suspected in setting of supratherapeutic INR -INR reversed 4.0 to 1.26 with vit K -PPI -clears for now -trend hemoglobin -GI pathogens, C diff, stool cultures ordered -discussed with physical therapy and concerns about strength and self care remain given his weakness Status: Acute (2) Supratherapeutic INR: Problem details: -reversed. now 1.51 -we can bridge with lovenox once the bleeding has stopped as we restart coumadin Status: Acute (3) Hyperkalemia: Problem details: -resolved Status: Acute (4) Atrial fibrillation: Problem details: -on chronic anticoagulation -restarted Coreg; dilt on hold - BP soft but I worry about rate control -telemetry Status: Acute (5) Hypertension: Problem details: -holding home meds - started back coreg; dilt and lisinopril on hold Status: Acute (6) Congestive heart failure: Problem details: -echocardiogram 01/22/2021: Final Impressions: 1. Mildly increased LV size, moderately increased wall thickness, low normal global systolic function with an estimated EF of 45 - 50%. 2. Right ventricular cavity size is moderately enlarged, global systolic RV function is mildly reduced. 3. Severely enlarged left atrium. 4. The aortic valve is sclerotic, no stenosis and trivial regurgitation. 5. The mitral valve is sclerotic, mild mitral regurgitation. 6. The aortic sinus is normal for age/sex/bsa with a maximal diameter of 3.7 cm. 7. 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 8. The inferior vena cava is dilated, respiratory size variation greater than 50%. -holding lasix in volume depletion. follow. Status: Acute (7) Peripheral neuropathy: Problem details: -chronic. No longer drives Status: Acute (8) Alcohol abuse: Problem details: -drinks 2 brandies daily -denies history of withdrawals or seizures -CIWAs have been zero Status: Acute (9) Edema: Problem details: -chronic, peripheral edema Status: Acute Subjective Date Seen: 12/15/24 Interval history: Daily Progress Note - Hospital Medicine Day #: 3 CC: Lower GI bleed 24 HOUR UPDATE: stable night. no further rectal bleeding. hungry this morning. no evidence of withdrawal. Notable Labs, Micro, Rads, Interventions: Hemoglobin on presentation 9.9, vikas thus far 7.9. this am 9.1. s/p two units of packed cells. Baseline appears to be 13. INR 1.26 chemistries reveal no concerns No recent colonoscopy found Objective: good color. alert. NIKOLAI but no obvious delirium/dementia/withdrawal. still quite weak. Vitals: see above Lungs: Clear. Cardiac: S1S2. Abdomen: soft; +BS Disposition/Potential discharge - home vs rehab depending on course of care Today I spent 50minutes seeing the patient, reviewing Expanse and EPIC notes/diagnostics, discussing the care plan with our care time that includes social work, PT/OT, pharmacy, RT, jail and documenting my impressions and plan in the medical record. Exam Const: Vital Signs, click to edit/add: Vital Signs - 24 hr 12/14/24 13:57 12/14/24 15:00 12/14/24 15:30 Temperature 97.2 F L Pulse Rate 101 H Pulse Rate [Pulse Oximeter] 100 99 Respiratory Rate 18 Blood Pressure [Le ft Arm] 127/83 Blood Pressure [Ri ght Arm] 110/68 Pulse Oximetry 97 Oxygen Delivery Me thod Room Air 12/14/24 16:00 12/14/24 16:01 12/14/24 18:00 Temperature Pulse Rate Pulse Rate [Pulse Oximeter] 99 99 103 H Respiratory Rate 18 18 18 Blood Pressure [Le ft Arm] Blood Pressure [Ri ght Arm] 110/68 114/69 Pulse Oximetry 97 97 Oxygen Delivery Sc thod Room Air Room Air 12/14/24 19:39 12/14/24 20:00 12/14/24 20:00 Temperature 97.4 F L Pulse Rate 97 Pulse Rate [Pulse Oximeter] 96 96 Respiratory Rate 18 18 Blood Pressure [Le ft Arm] 114/70 Blood Pressure [Ri ght Arm] Pulse Oximetry 98 Oxygen Delivery Sc thod Room Air 12/14/24 22:00 12/14/24 23:04 12/15/24 02:00 Temperature 97.5 F L Pulse Rate 103 H Pulse Rate [Pulse Oximeter] 96 105 H Respiratory Rate 18 16 Blood Pressure [Le ft Arm] 103/68 94/57 L Blood Pressure [Ri ght Arm] Pulse Oximetry 97 Oxygen Delivery Me thod Room Air Room Air 12/15/24 04:00 12/15/24 04:00 12/15/24 06:00 Temperature 97.6 F 97.2 F L Pulse Rate 113 H Pulse Rate [Pulse Oximeter] 113 H 116 H Respiratory Rate 16 18 Blood Pressure [Le ft Arm] 101/70 111/74 Blood Pressure [Ri ght Arm] Pulse Oximetry 98 96 Oxygen Delivery Me thod Room Air Room Air 12/15/24 07:00 12/15/24 07:27 12/15/24 08:13 Temperature 97.7 F 97.7 F Pulse Rate 113 H Pulse Rate [Pulse Oximeter] 103 H 103 H Respiratory Rate 18 18 Blood Pressure [Le ft Arm] 108/69 108/69 Blood Pressure [Ri ght Arm] Pulse Oximetry 96 96 Oxygen Delivery Sc thod Room Air Room Air 12/15/24 10:00 12/15/24 11:00 12/15/24 11:00 Temperature 97.7 F 97.7 F Pulse Rate 99 Pulse Rate [Pulse Oximeter] 99 99 Respiratory Rate 20 20 Blood Pressure [Le ft Arm] 107/70 107/70 Blood Pressure [Ri ght Arm] Pulse Oximetry 97 97 Oxygen Delivery Sc thod Room Air Room Air 12/15/24 12:00 12/15/24 12:00 Temperature 97.7 F Pulse Rate Pulse Rate [Pulse Oximeter] 99 103 H Respiratory Rate 18 Blood Pressure [Le ft Arm] 108/76 Blood Pressure [Ri ght Arm] Pulse Oximetry 99 Oxygen Delivery Sc thod Room Air Labs Labs: Laboratory Results - last 24 hr 12/14/24 12/15/24 18:16 06:07 WBC 6.78 RBC 2.56 L Hgb 9.7 L 9.1 L Hct 27.6 L MCV 108 H MCH 36 H MCHC 33 RDW Coeff of Daniela 19.5 H Plt Count 144 Neut % (Auto) 62.3 Lymph % (Auto) 28.2 [place] % (Auto) 6.9 Eos % (Auto) 2.1 Baso % (Auto) 0.4 Neut # (Auto) 4.22 Lymph # (Auto) 1.91 [place] # (Auto) 0.50 Eos # (Auto) 0.14 Baso # (Auto) 0.03 Abs Immat Gran (auto) 0.01 Imm/Tot Granulo (auto) 0.1 INR 1.26 H Sodium 139 Potassium 4.0 Chloride 107 Carbon Dioxide 26 Anion Gap 6 L BUN 37 H Creatinine 0.8 Estimated Creat Clear 60.15 Estimated GFR 86 Glucose 86 Calcium 8.6 Total Bilirubin 0.4 AST 17 ALT 8 Alkaline Phosphatase 42 Total Protein 5.1 L Albumin 2.8 L
[2024-12-15] MEDS: polyethylene glycoL 238 GM BULK BOTTLE PO (15:55)
--- NOTE | 2024-12-15 18:21 | PC.NURSE ---
Shift Summary: Patient pleasant and cooperative. Up with one assist, walker and gait belt, still verbalizes that he feels weak when ambulating. BSC when patient feels he is unable to make it to the bathroom. Started bowel prep, patient not tolerating well, informed he can drink one glass every 30-45min to decrease nausea, has been compliant. C/o pain in right hip this evening, repositioned in bed, verbalized relief from pain. vitals stable and WNL. x3 small loose BM, appeared dark green.
[2024-12-15] MEDS: ACETAMINOPHEN 325 MG TABLET PO (20:31)
[2024-12-15 23:00] LABS: Adenovirus PCR Not Detected; Astrovirus PCR Not Detected; Campylobacter PCR Not Detected; Cryptosporidium PCR Not Detected; Cyclospora cayetanensis PCR Not Detected; Entamoeba histolytica PCR Not Detected; Enteroaggregative E coli PCR Not Detected; Enteropathogenic E coli PCR Not Detected; Enterotoxigenic E coli PCR Not Detected; Giardia lamblia PCR Not Detected; Norovirus Gi/GII PCR Not Detected; Plesiomonas shig PCR Not Detected; Rotavirus A PCR Not Detected; Salmonella PCR Not Detected; Sapovirus PCR Not Detected; Shiga toxin E coli PCR Not Detected; Shigella/Enteroinvasive E coli Not Detected; Vibrio PCR Not Detected; Vibrio cholerae PCR Not Detected; Yersinia enterocolitica PCR Not Detected
[2024-12-16] VITALS (9 sets, daily range): BP systolic 86–108; BP diastolic 60–73; PULSE 97–109; RESP 16–18; TEMP 35.7–36.3; O2SAT 93–97
--- NOTE | 2024-12-16 05:09 | PC.NURSE ---
[id number] Pt slept ok during night, up to bsc frequently due to bowel prep for up coming colonoscopy. Pt tolerating drinking prep, no N/V this shift. Loose stools decreasing in volume and frequency as night progressed, no blood observed in stool. denies chest pain and headache, did mention bilateral knee pain, chronic, prn tylenol administered with relief.
[2024-12-16] MEDS: OMEPRAZOLE 20 MG CAPSULE DR 40 MG PO (06:25)
[2024-12-16 06:39] LABS: Hematocrit 26.5 % (37.0-53.0); Hemoglobin* 8.7 gm/dL (13.5-17.5); Mean Corpuscular HGB Conc 33 gm/dL (32-36); Mean Corpuscular Hemoglobin 36 pg (26-34); Mean Corpuscular Volume 110 fL (80-100); Platelet Count* 155 K/uL (140-440); Red Blood Count 2.42 m/uL (4.30-5.90); White Blood Count* 5.92 K/uL (4.50-11.00)
[2024-12-16 06:50] LABS: INR 1.03 (0.91-1.10); Prothrombin Time 14.4 Seconds
[2024-12-16 06:53] LABS: Slide Review Reflex No
[2024-12-16 07:06] LABS: Chloride* 105 mmol/L (96-114); Potassium* 3.8 mmol/L (3.6-5.1); Sodium* 137 mmol/L (135-149)
[2024-12-16 07:09] LABS: Anion Gap 3 mEq/L (7-15); Blood Urea Nitrogen* 26 mg/dL (7-30); Carbon Dioxide* 29 mmol/L (20-32); Creatinine* 0.8 mg/dL (0.5-1.5); Est. Creatinine Clearance* 58.02; Estimated Glomerular Filt Rate 86 ml/min
[2024-12-16 07:10] LABS: Calcium* 8.3 mg/dL (8.4-10.6); Glucose* 87 mg/dL (60-115)
[2024-12-16] MEDS: carvediloL 6.25 MG TABLET 12.5 MG PO (09:14)
[2024-12-16] MEDS: SODIUM CHLORIDE 0.9 % (FLUSH) 10 ML SYRINGE 5 ML IVF ×3 (09:18→19:11)
--- NOTE | 2024-12-16 12:48 | P.ANES_ITS ---
Anesthesia Charges Start Date/Time Anesthesia Start Date: 12/16/24 Anesthesia Start Time: 13:07 Stop Date/Time Anesthesia Stop Date: 12/16/24 Anesthesia Stop Time: 13:38 Summary Extremes of Age - Over 70 or under 1: MDA Coding CPT Codes CPT Codes: ANES LWR INTST NDSC NOS - 87559 ([id number]) QK - CUSTOMER SUCCESS DIRECTOR 2-4 CNCRNT ANES PROC, QX - BAKER CHEF SVC W/ MD MED DIRECTION, P3 - PATIENT W/SEVERE SYS DISEASE Additional Codes: Summary - Extremes of Age - Over 70 or under 1: MDA ([id number])
--- NOTE | 2024-12-16 13:28 | PM.IMPN1 ---
Progress Note: A&P Assessment and plan (1) GI bleed: Problem details: -12/16 - colonoscopy -last maroon stool 5-6 am 12/14 -diverticular bleed suspected in setting of supratherapeutic INR -INR reversed 4.0 to 1.03 with vit K -PPI -clears for now -trend hemoglobin -GI pathogens, C diff, stool cultures ordered -discussed with physical therapy and concerns about strength and self care remain given his weakness Status: Acute (2) Supratherapeutic INR: Problem details: -reversed. now 1.03 -we can bridge with lovenox once the bleeding has stopped as we restart coumadin Status: Acute (3) Hyperkalemia: Problem details: -resolved Status: Acute (4) Atrial fibrillation: Problem details: -on chronic anticoagulation -restarted Coreg; dilt on hold - BP soft but I worry about rate control -12/16 coreg is suppressing BP - I decreased dose from 12.5 to 6.25mg BID -telemetry Status: Acute (5) Hypertension: Problem details: -holding home meds - started back coreg; dilt and lisinopril on hold -recommend orthostatics before discharge Status: Acute (6) Congestive heart failure: Problem details: -echocardiogram 01/22/2021: Final Impressions: 1. Mildly increased LV size, moderately increased wall thickness, low normal global systolic function with an estimated EF of 45 - 50%. 2. Right ventricular cavity size is moderately enlarged, global systolic RV function is mildly reduced. 3. Severely enlarged left atrium. 4. The aortic valve is sclerotic, no stenosis and trivial regurgitation. 5. The mitral valve is sclerotic, mild mitral regurgitation. 6. The aortic sinus is normal for age/sex/bsa with a maximal diameter of 3.7 cm. 7. 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 8. The inferior vena cava is dilated, respiratory size variation greater than 50%. -holding lasix in volume depletion. follow. Status: Acute (7) Peripheral neuropathy: Problem details: -chronic. No longer drives Status: Acute (8) Alcohol abuse: Problem details: -drinks 2 brandies daily -denies history of withdrawals or seizures -CIWAs have been zero Status: Acute (9) Edema: Problem details: -chronic, peripheral edema Status: Acute Subjective Date Seen: 12/16/24 Interval history: Daily Progress Note - #: 4 CC: Lower GI bleed 24 HOUR UPDATE: stable night. no further rectal bleeding. hungry this morning. no evidence of withdrawal. Notable Labs, Micro, Rads, Interventions: Hemoglobin on presentation 9.9, vikas thus far 7.9. this am 8.7. s/p two units of packed cells. Baseline appears to be 13. INR 1.03 - has a need for oral anticoagulation for AFIB - may need lovenox bridge to warfarin. TBD chemistries reveal no concerns No recent colonoscopy found Objective: good color. alert. [facility] but no obvious delirium/dementia/withdrawal. still quite weak. Vitals: see above Lungs: Clear. Cardiac: S1S2. Abdomen: soft; +BS Disposition/Potential discharge - home vs rehab depending on course of care Today I spent 50minutes seeing the patient, reviewing Expanse and EPIC notes/diagnostics, discussing the care plan with our care time that includes social work, PT/OT, pharmacy, RT, nursing home and documenting my impressions and plan in the medical record. Exam Const: Vital Signs, click to edit/add: Vital Signs - 24 hr 12/15/24 14:00 12/15/24 14:45 12/15/24 16:33 Temperature 97.6 F Pulse Rate 99 Pulse Rate [Pulse Oximeter] 96 95 Respiratory Rate 18 Blood Pressure [Le ft Arm] 100/67 Pulse Oximetry 97 Oxygen Delivery Me thod Room Air 12/15/24 19:00 12/15/24 19:00 12/15/24 20:00 Temperature 96.5 F L 96.5 F L Pulse Rate Pulse Rate [Pulse Oximeter] 105 H 105 H 105 H Respiratory Rate 18 18 Blood Pressure [Le ft Arm] 101/65 101/65 Pulse Oximetry 95 95 Oxygen Delivery Me thod Room Air Room Air 12/15/24 23:00 12/15/24 23:00 12/15/24 23:00 Temperature 96.6 F L 96.6 F L Pulse Rate 88 Pulse Rate [Pulse Oximeter] 91 91 Respiratory Rate 16 16 Blood Pressure [Le ft Arm] 94/62 94/62 Pulse Oximetry 96 96 Oxygen Delivery Me thod Room Air Room Air 12/15/24 23:08 12/16/24 03:00 12/16/24 03:00 Temperature 96.3 F L 96.3 F L Pulse Rate Pulse Rate [Pulse Oximeter] 91 97 97 Respiratory Rate 18 18 Blood Pressure [Le ft Arm] 99/66 99/66 Pulse Oximetry 97 97 Oxygen Delivery Me thod Room Air Room Air 12/16/24 07:02 12/16/24 07:45 12/16/24 07:45 Temperature 96.8 F L Pulse Rate 103 H Pulse Rate [Pulse Oximeter] 102 H 102 H Respiratory Rate 18 18 Blood Pressure [Le ft Arm] 108/67 Pulse Oximetry 93 Oxygen Delivery Me thod Room Air 12/16/24 11:00 Temperature 96.7 F L Pulse Rate Pulse Rate [Pulse Oximeter] 99 Respiratory Rate 18 Blood Pressure [Le ft Arm] 92/61 Pulse Oximetry 97 Oxygen Delivery Me thod Room Air Labs Labs: Laboratory Results - last 24 hr 12/13/24 12/16/24 18:00 05:55 WBC 5.92 RBC 2.42 L Hgb 8.7 L Hct 26.5 L MCV 110 H MCH 36 H MCHC 33 Plt Count 155 INR 1.03 Sodium 137 Potassium 3.8 Chloride 105 Carbon Dioxide 29 Anion Gap 3 L BUN 26 Creatinine 0.8 Estimated Creat Clear 58.02 Estimated GFR 86 Glucose 87 Calcium 8.3 L Stl C. cayetanensis PCR Not Detected Stool Rotavirus A PCR Not Detected Stool Adenovirus (PCR) Not Detected Stool Astrovirus (PCR) Not Detected Stool Campylobacter PCR Not Detected Stool Cryptosporidium PCR Not Detected Stl E.coli Shiga Tox PCR Not Detected Stool E coli O157 PCR N/A Stl Enterotoxigenic E PCR Not Detected Stool EPEC (PCR) Not Detected Stool EAEC (PCR) Not Detected Stl E. histolytica PCR Not Detected Stool Giardia Lamblia PCR Not Detected Stl P. shigelloides PCR Not Detected Stool Salmonella PCR Not Detected Stool Sapovirus (PCR) Not Detected Stl Shigella/EIEC PCR Not Detected St Y.enterocolitica PCR Not Detected Stool Vibrio (PCR) Not Detected Stl Vibrio cholerae PCR Not Detected Stl Norovirus GI/GII PCR Not Detected
--- NOTE | 2024-12-16 13:40 | P.ANES_ITS ---
Anesthesia Charges Start Date/Time Anesthesia Start Date: 12/16/24 Anesthesia Start Time: 13:07 Stop Date/Time Anesthesia Stop Date: 12/16/24 Anesthesia Stop Time: 13:38 Summary Extremes of Age - Over 70 or under 1: BISQUE CLEANER Coding CPT Codes CPT Codes: ANES LWR INTST NDSC NOS - 99918 ([id number]) P3 - PATIENT W/SEVERE SYS DISEASE, QX - BISQUE CLEANER SVC W/ MD MED DIRECTION, QK - TIRE TECHNICIAN 2-4 CNCRNT ANES PROC Additional Codes: Summary - Extremes of Age - Over 70 or under 1: BISQUE CLEANER ([id number])
--- NOTE | 2024-12-16 13:40 | W.ANESCHARGE ---
Anesthesia Charges Start Date/Time Anesthesia Start Date: 12/16/24 Anesthesia Start Time: 13:07 Stop Date/Time Anesthesia Stop Date: 12/16/24 Anesthesia Stop Time: 13:38 Summary Extremes of Age - Over 70 or under 1: CLOTH WEAVER Coding CPT Codes CPT Codes: ANES LWR INTST NDSC NOS - 95451 ([id number]) P3 - PATIENT W/SEVERE SYS DISEASE, QX - CLOTH WEAVER SVC W/ MD MED DIRECTION, QK - MIDDLEWARE DEVELOPER 2-4 CNCRNT ANES PROC Additional Codes: Summary - Extremes of Age - Over 70 or under 1: CLOTH WEAVER ([id number])
--- NOTE | 2024-12-16 14:42 | PC.NURSE ---
end of shift. pt has been very pleasant. no pain, he finished his colon prep. he has greenish tint liquid stool. Pt is tolerating drinking prep, no N/V. no blood was noted. SL patent x2. he is up with 1 assist.
[2024-12-16] MEDS: ACETAMINOPHEN 325 MG TABLET PO (19:09)
--- NOTE | 2024-12-16 22:39 | PC.NURSE ---
Patient alert and oriented during the shift. Using call light appropriately and ambulating with walker and SBA. Patient had colonoscopy scheduled at 1300. Went to procedure and returned to the unit. Hypertensive throughout the day. Asymptomatic. MD notified and held Carvedilol for evening dose. Patient able to eat after procedure and tolerating well. Right knee pain (chronic) reported to nurse. Tylenol given to help with pain. Plan to discharge with outpatient services tomorrow. Nursing will continue to monitor and assess.?
[2024-12-17] VITALS (13 sets, daily range): BP systolic 83–117; BP diastolic 54–82; PULSE 77–118; RESP 16–18; TEMP 35.8–36.4; O2SAT 94–99
[2024-12-17 06:35] LABS: Hematocrit 25.7 % (37.0-53.0); Hemoglobin* 8.5 gm/dL (13.5-17.5); Mean Corpuscular HGB Conc 33 gm/dL (32-36); Mean Corpuscular Hemoglobin 36 pg (26-34); Mean Corpuscular Volume 109 fL (80-100); Platelet Count* 171 K/uL (140-440); Red Blood Count 2.35 m/uL (4.30-5.90); White Blood Count* 5.36 K/uL (4.50-11.00)
[2024-12-17 06:40] LABS: Chloride* 105 mmol/L (96-114); Potassium* 3.6 mmol/L (3.6-5.1); Sodium* 137 mmol/L (135-149)
[2024-12-17 06:43] LABS: Anion Gap 1 mEq/L (7-15); Blood Urea Nitrogen* 19 mg/dL (7-30); Calcium* 8.3 mg/dL (8.4-10.6); Carbon Dioxide* 31 mmol/L (20-32); Creatinine* 0.9 mg/dL (0.5-1.5); Est. Creatinine Clearance* 60.59; Estimated Glomerular Filt Rate 83 ml/min; Glucose* 93 mg/dL (60-115)
[2024-12-17] MEDS: OMEPRAZOLE 20 MG CAPSULE DR 40 MG PO (06:44)
--- NOTE | 2024-12-17 06:50 | PC.NURSE ---
End of shift note [id number]: Pt A&Ox4 and able to make needs known. B/Ps continue to trend softer though pt asymptomatic. Tele in place with A fib with NVR and BBB noted which is not a new finding. Pt has been afebrile and on RA throughout the shift. HR noted to be slightly tachycardic at 107 after ambulating to & from bathroom though WNL at rest. No stools or N/V noted this shift. Pt transferring/ambulating with SBA using walker and gait belt. Bed alarm on and call light within reach.?
[2024-12-17 06:57] LABS: Slide Review Reflex No
[2024-12-17 07:02] LABS: INR 1.13 (0.91-1.10); Prothrombin Time 15.3 Seconds
--- NOTE | 2024-12-17 09:42 | PM.IMPN1 ---
Progress Note: A&P Assessment and plan (1) GI bleed: Problem details: -12/13: presented with hematochezia, last maroon stool 0600 12/14/24 -12/16: colonoscopy: multiple polyps, fungating mass in proximal ascending colon -INR reversed 4.0 to 1.03 with vit K -Hgb vikas of 7.9, s/p 2U of PRBCs, current Hgb 8.5 -HOLDING anticoagulation Status: Acute (2) Atrial fibrillation: Problem details: -permanent a fib, intermittent RVR upon admission, currently 90-110s -prior to admission, anticoagulated on Warfarin and rate controlled on 120mg of Diltiazem daily + 12.5mg of Carvedilol BID -has had lower BPs during stay, but asymptomatic. Anticipate improvement in BP with improvement in rate control -12/17: restarting Diltiazem 120mg QD, at HS will restart lower dose of Carvedilol (6.25mg BID) -continue following on telemetry -HOLDING anticoagulation at this time given acute lower GI bleed, known colonic mass, hypotension -CHADs-VASC of 4-5, HASBLED of 4 Status: Acute (3) Supratherapeutic INR: Problem details: -reversed with Vitamin K on 12/13 -HOLDING anticoagulation at this time given acute lower GI bleed, known colonic mass, hypotension -CHADs-VASC of 4-5, HASBLED of 4 Status: Acute (4) Congestive heart failure: Problem details: - HFpEF per echocardiogram 01/22/2021: Final Impressions: 1. Mildly increased LV size, moderately increased wall thickness, low normal global systolic function with an estimated EF of 45 - 50%. 2. Right ventricular cavity size is moderately enlarged, global systolic RV function is mildly reduced. 3. Severely enlarged left atrium. 4. The aortic valve is sclerotic, no stenosis and trivial regurgitation. 5. The mitral valve is sclerotic, mild mitral regurgitation. 6. The aortic sinus is normal for age/sex/bsa with a maximal diameter of 3.7 cm. 7. 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 8. The inferior vena cava is dilated, respiratory size variation greater than 50%. -holding lasix 2/2 volume depletion from lower GI bleed -holding Lisinopril, on lower dose of Carvedilol given hypotension -no evidence of CHF exacerbation Status: Acute (5) Alcohol abuse: Problem details: -drinks 2 brandies daily -denies history of withdrawals or seizures -CIWAs have been zero during stay Status: Acute (6) Edema: Problem details: -chronic, peripheral edema, 1+, unchanged Status: Acute (7) Hypertension: Problem details: -hypotensive (combination of hemorrhage + iatrogenic), asymptomatic Status: Acute (8) Peripheral neuropathy: Problem details: -chronic. No longer drives Status: Acute (9) Hyperkalemia: Problem details: -resolved Status: Acute Plan - per above (restarting low-dose Coreg BID, restarting diltiazem once daily, holding lisinopril and Lasix), follow BPs and Orthostatics on this regimen to ensure he can d/c home safely on 12/18 with HH - continue to hold pharmacologic anticoagulation in the setting of recent hematochezia, hypotension, known fungating colonic mass with high risk of rebleeding - son Danny updated by phone, questions answered Subjective Date Seen: 12/17/24 Interval history: Vinnie was admitted to the hospital on 12/13 for hematochezia. Comorbidities include a fib (anticoagulated on Coumadin), HFpEF (last TTE in 2020 revealed a low normal EF of 45-50%). Since admission: - Hgb vikas of 7.9 (outpatient baseline 13), s/p 2U of PRBCs. Hgb today 8.5 - Colonoscopy performed 12/16; multiple polyps, large fungating nonobstructing mass noted in proximal ascending colon. Biopsies taken, pathology pending - received Vitamin K 12/13, HOLDING Warfarin, INR 1.13 - remains in a fib, rate 90-110s - intermittent hypotension, asymptomatic. We have been HOLDING Lisinopril, Diltiazem, Furosemide, and Carvedilol - working with therapies, HH vs SNF recommended; patient requesting home with Home health Vinnie is still weak, feels closer to baseline. Hoping to go home soon. Advancing diet since colonoscopy yesterday, no recurrent hematochezia. Exam Narrative: Exam Narrative: GEN: Alert and sitting comfortably in bedside chair having breakfast HEENT: EOMIs bilaterally, no scleral icterus CV: AFib, rate in the 90s, no concerning murmurs R: LCTA bilaterally without concerning wheezing, rales, or rhonchi Ext: 1+ bilateral lower extremity edema with hyperpigmentation consistent with PVD Skin: No other concerning skin lesions or rashes on exposed skin Neuro: No focal deficits or resting tremor Psych: Appropriate Const: Vital Signs, click to edit/add: Vital Signs - 24 hr 12/16/24 11:00 12/16/24 15:00 12/16/24 15:00 Temperature 96.7 F L 97.1 F L Pulse Rate Pulse Rate [Pulse Oximeter] 99 109 H 109 H Respiratory Rate 18 18 18 Blood Pressure [Le ft Arm] 92/61 86/60 L Blood Pressure [Ri ght Arm] Pulse Oximetry 97 95 Oxygen Delivery Me thod Room Air Room Air 12/16/24 15:00 12/16/24 19:00 12/16/24 22:43 Temperature 97.4 F L Pulse Rate 99 99 Pulse Rate [Pulse Oximeter] 102 H Respiratory Rate 16 Blood Pressure [Le ft Arm] 96/73 Blood Pressure [Ri ght Arm] Pulse Oximetry 96 Oxygen Delivery Me thod Room Air 12/16/24 23:00 12/16/24 23:23 12/17/24 03:00 Temperature 97.3 F L 97.2 F L Pulse Rate Pulse Rate [Pulse Oximeter] 97 97 107 H Respiratory Rate 16 16 18 Blood Pressure [Le ft Arm] 93/60 117/82 Blood Pressure [Ri ght Arm] Pulse Oximetry 95 94 Oxygen Delivery Me thod Room Air Room Air 12/17/24 09:00 12/17/24 09:05 12/17/24 09:08 Temperature 97.6 F Pulse Rate Pulse Rate [Pulse Oximeter] 116 H 96 109 H Respiratory Rate 18 Blood Pressure [Le ft Arm] 87/62 L 83/55 L Blood Pressure [Ri ght Arm] 85/60 L Pulse Oximetry 99 Oxygen Delivery Me thod Room Air Labs Labs: Laboratory Results - last 24 hr 12/17/24 05:52 WBC 5.36 RBC 2.35 L Hgb 8.5 L Hct 25.7 L MCV 109 H MCH 36 H MCHC 33 Plt Count 171 INR 1.13 H Sodium 137 Potassium 3.6 Chloride 105 Carbon Dioxide 31 Anion Gap 1 L BUN 19 Creatinine 0.9 Estimated Creat Clear 60.59 Estimated GFR 83 Glucose 93 Calcium 8.3 L
[2024-12-17] MEDS: dilTIAZem 120 MG CAP.ER.24H PO (13:14)
--- NOTE | 2024-12-17 17:35 | PC.NURSE ---
End of Shift: Patient pleasant and cooperative. Patient hypotensive, but stable, MD aware, BS WNL, IV's SL and intact. Patient denies pain, and ambulates 1 assist/walker/gb. Patient tolerating regular diet, and urinating well, No BM this shift, just gas. Tele=A.fib.
[2024-12-17] MEDS: ACETAMINOPHEN 325 MG TABLET PO (19:55)
[2024-12-17] MEDS: carvediloL 6.25 MG TABLET PO (21:05)
[2024-12-17] MEDS: SODIUM CHLORIDE 0.9 % (FLUSH) 10 ML SYRINGE 5 ML IVF ×2 (21:05→21:06)
[2024-12-18 00:29] VITALS: BP 85/56; PULSE 81; RESP 16; TEMP 36.1; O2SAT 94
[2024-12-18 04:30] VITALS: BP 97/70; PULSE 99; RESP 18; TEMP 36.3; O2SAT 95
[2024-12-18] MEDS: OMEPRAZOLE 20 MG CAPSULE DR 40 MG PO (06:12)
[2024-12-18 06:32] LABS: Basophils Absolute Auto 0.02 K/uL (0.00-0.30); Basophils Percent Auto 0.3 % (0.0-3.0); Eosinophils Absolute Auto 0.12 K/uL (0.00-0.50); Eosinophils Percent Auto 2.1 % (0.0-7.0); Hematocrit 24.6 % (37.0-53.0); Hemoglobin* 8.2 gm/dL (13.5-17.5); Immature Granulocytes Abs Auto 0.02 K/uL (0.00-0.30); Immature Granulocytes Pct Auto 0.3 %; Lymphocytes Absolute Auto 1.89 K/uL (0.90-2.90); Lymphocytes Percent Auto 32.3 % (20-44); Mean Corpuscular HGB Conc 33 gm/dL (32-36); Mean Corpuscular Hemoglobin 37 pg (26-34); Mean Corpuscular Volume 110 fL (80-100); Monocytes Percent Auto 10.3 % (0.0-11.0); Neutrophils Percent Auto 54.7 % (42.0-72.0); Platelet Count* 179 K/uL (140-440); RDW Coefficient of Variation % 17.8 % (11.5-15.5); Red Blood Count 2.24 m/uL (4.30-5.90); White Blood Count* 5.85 K/uL (4.50-11.00)
[2024-12-18 06:35] LABS: Chloride* 105 mmol/L (96-114); Potassium* 3.7 mmol/L (3.6-5.1); Sodium* 135 mmol/L (135-149)
--- NOTE | 2024-12-18 06:36 | PC.NURSE ---
End of shift note [id number]: Pt A&Ox4 and able to make needs known. Pt has been afebrile and on RA throughout the shift. Pt noted to be hypotensive with one VS reading overnight though asymptomatic. Pt continues to tolerate regular diet with no N/V noted. Tele in place with A fib with NVR and BBB noted which is not a new finding. No c/o CP. Pt transfers/ambulates with SBA using rolling walker and gait belt. PRN Tylenol administered for c/o chronic R knee pain last evening. Bed alarm on and call light within reach. ?
[2024-12-18 06:38] LABS: Anion Gap 2 mEq/L (7-15); Carbon Dioxide* 28 mmol/L (20-32); Slide Review Reflex No
[2024-12-18 06:39] LABS: Calcium* 8.1 mg/dL (8.4-10.6); Glucose* 93 mg/dL (60-115)
[2024-12-18 06:42] LABS: Prothrombin Time 15.1 Seconds
[2024-12-18 06:54] LABS: Blood Urea Nitrogen* 17 mg/dL (7-30); Creatinine* 0.9 mg/dL (0.5-1.5); Est. Creatinine Clearance* 61.65; Estimated Glomerular Filt Rate 83 ml/min
[2024-12-18 07:09] VITALS: PULSE 81
[2024-12-18 08:19] VITALS: BP 100/73; PULSE 86; RESP 18; TEMP 36.8; O2SAT 97
[2024-12-18] MEDS: carvediloL 6.25 MG TABLET PO (08:24)
[2024-12-18] MEDS: dilTIAZem 120 MG CAP.ER.24H PO (08:24)
[2024-12-18] MEDS: SODIUM CHLORIDE 0.9 % (FLUSH) 10 ML SYRINGE 5 ML IVF (08:24)
--- NOTE | 2024-12-18 10:21 | PM.DS1 ---
DS: Providers Provider Date Seen: 12/18/24 Date of admission: 12/13/24 13:37 Primary care physician: Calos Reddy MD Admitting Clinician: Kemi Bustos MD Consults: OT, PT, SW Attending Physician on discharge: Salma Garcia MD Date of Discharge: 12/18/24 DS: Diagnosis Discharge Diagnosis (1) GI bleed: Status: Acute Problem details: -12/13: presented with hematochezia, last maroon stool 0600 12/14/24 -12/16: colonoscopy: multiple polyps, fungating mass in proximal ascending colon (pathology pending upon d/c) -INR reversed 4.0 to 1.03 with vit K -Hgb vikas of 7.9, s/p 2U of PRBCs, discharge Hgb 8.2 -no dizziness or lightheadedness, given information on high iron diet upon d/c -HOLDING anticoagulation upon discharge given colonic mass, anemia, risk for rebleeding (2) Atrial fibrillation: Status: Acute Problem details: -permanent a fib, intermittent RVR upon admission, currently 90-110s -prior to admission, anticoagulated on Warfarin and rate controlled on 120mg of Diltiazem daily + 12.5mg of Carvedilol BID -has had lower BPs during stay, but asymptomatic. Anticipate improvement in BP with improvement in rate control -12/17: restarting Diltiazem 120mg QD, at HS will restart lower dose of Carvedilol (6.25mg BID) -continue following on telemetry -HOLDING anticoagulation at this time given acute lower GI bleed, known colonic mass, hypotension -CHADs-VASC of 4-5, HASBLED of 4 (3) Supratherapeutic INR: Status: Acute Problem details: -reversed with Vitamin K on 12/13 -HOLDING anticoagulation at this time given acute lower GI bleed, known colonic mass, hypotension -CHADs-VASC of 4-5, HASBLED of 4 (4) Congestive heart failure: Status: Acute Problem details: - HFpEF per echocardiogram 01/22/2021: Final Impressions: 1. Mildly increased LV size, moderately increased wall thickness, low normal global systolic function with an estimated EF of 45 - 50%. 2. Right ventricular cavity size is moderately enlarged, global systolic RV function is mildly reduced. 3. Severely enlarged left atrium. 4. The aortic valve is sclerotic, no stenosis and trivial regurgitation. 5. The mitral valve is sclerotic, mild mitral regurgitation. 6. The aortic sinus is normal for age/sex/bsa with a maximal diameter of 3.7 cm. 7. 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 8. The inferior vena cava is dilated, respiratory size variation greater than 50%. -holding lasix 2/2 volume depletion from lower GI bleed and hypotension -holding Lisinopril, on lower dose of Carvedilol given hypotension -no evidence of CHF exacerbation (5) Alcohol abuse: Status: Acute Problem details: -drinks 2 brandies daily -denies history of withdrawals or seizures -CIWAs have been zero during stay (6) Edema: Status: Acute Problem details: -chronic, peripheral edema, 1+, unchanged (7) Hypertension: Status: Acute Problem details: -hypotensive (combination of hemorrhage + iatrogenic), asymptomatic -medication changes per below (8) Peripheral neuropathy: Status: Acute Problem details: -chronic. No longer drives (9) Hyperkalemia: Status: Acute Problem details: -resolved DS: Summary Hospital Course Hospital Course: Vinnie was admitted to the hospital on 12/13 for hematochezia. Comorbidities: atrial fibrillation (anticoagulated on Coumadin), HFpEF (last TTE in 2020 revealed a low normal EF of 45-50%). Notable findings during stay: - Hgb vikas of 7.9 (outpatient baseline 13), s/p 2U of PRBCs. Hgb today 8.5 - Colonoscopy performed 12/16; multiple polyps, large fungating nonobstructing mass noted in proximal ascending colon. Biopsies taken, pathology pending - INR of 4.0 upon admission. Received Vitamin K 12/13, HOLDING Warfarin upon discharge - in atrial fibrillation throughout stay, rate 90-110s during early part of stay, HR improved to 70-80 upon resumption of Coreg Medication Changes upon d/c: DISCONTINUING Lisinopril, Lasix and Warfarin given bleeding and hypotension CHANGING Coreg (Carvedilol) dosing from 12.5mg BID --> 6.25mg BID given hypotension. Adequate rate control on 6.25mg BID CONTINUING Diltiazem at the same dose (120mg daily). Vinnie was seen by therapies during stay, HH recommended and ordered. Family updated with plan of care upon d/c. Followup for PCP: - pathology results from colonoscopy - medication changes per above Status at Discharge Overall status at discharge: patient is progressing back to baseline Time Spent with Patient Time attestation: Total time spent providing and/or coordinating discharge services: Time spent: Greater than 30 minutes Specific discharge activities: Medication reconciliation, multidisciplinary team discussion/collaboration, family updates Exam Narrative: Exam Narrative: GEN: Alert and answering questions appropriately, nontoxic HEENT: EOMIs bilaterally, no scleral icterus CV: Atrial fibrillation with rate in the 80s R: LCTA bilaterally without concerning wheezing Ext: Trace bilateral lower extremity edema, mild hyperpigmentation consistent with PVD Skin: No other concerning skin lesions or rashes on exposed skin Neuro: Nonfocal Psych: Appropriate Const: Vital Signs, click to edit/add: Vital Signs - 24 hr 12/17/24 11:27 12/17/24 15:28 12/17/24 15:28 Temperature 97.5 F L 97.5 F L Pulse Rate Pulse Rate [Pulse Oximeter] 89 100 100 Pulse Rate [orthos tatic lying Left] Pulse Rate [orthos tatic sitting Left ] Pulse Rate [orthos tatic standing Lef t] Respiratory Rate 16 16 16 Blood Pressure [Le ft Arm] 94/61 96/59 L Blood Pressure [or thostatic lying Le ft Arm] Blood Pressure [or thostatic sitting Left Arm] Blood Pressure [or thostatic standing Left Arm] Pulse Oximetry 97 96 Oxygen Delivery Me thod Room Air Room Air 12/17/24 15:44 12/17/24 17:04 12/17/24 19:51 Temperature 96.4 F L Pulse Rate 77 Pulse Rate [Pulse Oximeter] 87 Pulse Rate [orthos tatic lying Left] 112 H Pulse Rate [orthos tatic sitting Left ] 96 Pulse Rate [orthos tatic standing Lef t] 118 H Respiratory Rate 16 Blood Pressure [Le ft Arm] 97/69 Blood Pressure [or thostatic lying Le ft Arm] 88/57 L Blood Pressure [or thostatic sitting Left Arm] 86/56 L Blood Pressure [or thostatic standing Left Arm] 89/54 L Pulse Oximetry 99 Oxygen Delivery Me thod Room Air 12/17/24 21:03 12/17/24 22:31 12/17/24 23:00 Temperature Pulse Rate 80 Pulse Rate [Pulse Oximeter] 101 H 80 Pulse Rate [orthos tatic lying Left] Pulse Rate [orthos tatic sitting Left ] Pulse Rate [orthos tatic standing Lef t] Respiratory Rate 16 Blood Pressure [Le ft Arm] 103/80 Blood Pressure [or thostatic lying Le ft Arm] Blood Pressure [or thostatic sitting Left Arm] Blood Pressure [or thostatic standing Left Arm] Pulse Oximetry Oxygen Delivery Ak [facility]od 12/18/24 00:29 12/18/24 04:30 12/18/24 07:09 Temperature 96.9 F L 97.3 F L Pulse Rate 81 Pulse Rate [Pulse Oximeter] 81 99 Pulse Rate [orthos tatic lying Left] Pulse Rate [orthos tatic sitting Left ] Pulse Rate [orthos tatic standing Lef t] Respiratory Rate 16 18 Blood Pressure [Le ft Arm] 85/56 L 97/70 Blood Pressure [or thostatic lying Le ft Arm] Blood Pressure [or thostatic sitting Left Arm] Blood Pressure [or thostatic standing Left Arm] Pulse Oximetry 94 [facility] 12/18/24 08:19 12/18/24 08:19 Temperature 98.2 F Pulse Rate Pulse Rate [Pulse Oximeter] 86 86 Pulse Rate [orthos tatic lying Left] Pulse Rate [orthos tatic sitting Left ] Pulse Rate [orthos tatic standing Lef t] Respiratory Rate 18 18 Blood Pressure [Le ft Arm] 100/73 Blood Pressure [or thostatic lying Le ft Arm] Blood Pressure [or thostatic sitting Left Arm] Blood Pressure [or thostatic standing Left Arm] Pulse Oximetry 97 [facility] DS: Data Data Completed and Pending Labs on day of discharge: Labs from last 24 hours 12/18/24 05:51 WBC 5.85 RBC 2.24 L Hgb 8.2 L Hct 24.6 L MCV 110 H MCH 37 H MCHC 33 RDW Coeff of Daniela 17.8 H Plt Count 179 Neut % (Auto) 54.7 Lymph % (Auto) 32.3 [place] % (Auto) 10.3 Eos % (Auto) 2.1 Baso % (Auto) 0.3 Neut # (Auto) 3.20 Lymph # (Auto) 1.89 [place] # (Auto) 0.60 Eos # (Auto) 0.12 Baso # (Auto) 0.02 Abs Immat Gran (auto) 0.02 Imm/Tot Granulo (auto) 0.3 INR 1.10 Sodium 135 Potassium 3.7 Chloride 105 Carbon Dioxide 28 Anion Gap 2 L BUN 17 Creatinine 0.9 Estimated Creat Clear 61.65 Estimated GFR 83 Glucose 93 Calcium 8.1 L Preliminary micro results at discharge 12/13/24 18:00 Stool Culture - Preliminary Stool Discharge Plan Discharge Disposition: Home, Self-Care Date of Admission: 12/13/24 13:37 Attending Provider on Discharge: Salma Garcia Primary Care Provider: Calos Reddy Condition: Improved Anticipated Discharge Date/Time: 12/18/24 09:56 Discharge Medications: New carvedilol 6.25 mg Tablet 6.25 mg PO BID Qty: 60 0RF Continued diltiazem HCl 120 mg capsule,extended release 24hr 120 mg PO DAILY Qty: 90 3RF Discontinued carvedilol 12.5 mg tablet 12.5 mg PO BID Qty: 180 3RF furosemide 40 mg tablet 40 mg PO DAILY lisinopril 10 mg tablet 10 mg PO DAILY warfarin 5 mg tablet 2.5 - 5 mg PO DAILY Qty: 100 3RF Protocol: Dose Management Condition: Monday Dose/Route: 2.5 mg Instruction: 0.5 x 5 mg tablets Condition: Monday Dose/Route: 5 mg Instruction: 1 x 5 mg tablet Condition: Monday Dose/Route: 2.5 mg Instruction: 0.5 x 5 mg tablets Condition: Monday Dose/Route: 5 mg Instruction: 1 x 5 mg tablet Condition: Dose/Route: 2.5 mg Instruction: 0.5 x 5 mg tablets Condition: Monday Dose/Route: 5 mg Instruction: 1 x 5 mg tablet Condition: Monday Dose/Route: 2.5 mg Instruction: 0.5 x 5 mg tablets Protocol Text: Adjustment Start Date: 02/08/24 INR Value: 2.4 INR Date: 02/08/24 Recheck Date: 03/07/24 Rx Instructions: Guillen 2.5 MG, M 5 MG, Tu 2.5 MG, W 5 MG, Th 2.5 MG, F 5 MG, Sa 2.5 MG Discharge Orders: Discharge Order (Routine); Ordered 12/18/24 Ordered By: Salma Garcia Patient Education: Carvedilol (By mouth), Gastrointestinal Bleeding (DC) Additional Instructions: Medication changes: STOP your Lisinopril, Lasix and Warfarin. CHANGE your Coreg (Carvedilol) dosing from 12.5mg twice/day to a LOWER dose of 6.25mg twice/day. New prescription sent to your pharmacy. CONTINUE your Diltiazem at the same dose (120mg daily). Dr. Reddy will chat with you about about how or when to restart these - right now, your blood pressure is low for the Lasix and Lisinopril and the risk of bleeding from your colon mass is too high to be taking Warfarin. Home health will come out to see you over the next few days. We should hear from you with any more bloody stools, dizziness, lightheadedness, or any other concerns. Home Health has been arranged with [facility] [phone]. They will be calling you to schedule the visits. Activity Level: No strenuous activity Discharge Diet: Regular Follow Up Appointments: Calos Reddy MD [Primary Care Provider] - 12/25/24 9:45 am ([facility] for follow-up, med check, and review of colonoscopy pathology) Forms: Comprehensive Care Info Instructions
[2024-12-18 11:16] VITALS: BP 97/64; PULSE 70; RESP 18; TEMP 36.6; O2SAT 98
--- NOTE | 2024-12-18 14:37 | PC.NURSE ---
Discharge: Patient pleasant and cooperative. Patient slightly hypotensive, but stable, lungs clear/diminished, BS WNL, IVs removed, catheters intact. Patient denies pain. Patient SBA with walker. Patient tolerating regular diet, urinating well, No BM. Tele=A.fib. Patient signed belongings sheet and discharge form, and had no further question regarding discharge. Patient left the floor by wheelchair to home at 1300, with family member.
== END 2024-12-18 13:00 | disposition home or self-care (01) | DRG 378 ==
LOC: ED 11:42 → MEDSURG 12:39
PROVIDERS: Family Medicine; Admitting Provider Physician Assistant; Emergency Provider Internal Medicine; PCP Family Medicine; Visit Provider Family Medicine
DX: K92.2 Gastrointestinal hemorrhage, unspecified (principal); D62 Acute posthemorrhagic anemia; I48.21 Permanent atrial fibrillation; E87.5 Hyperkalemia; Z79.01 Long term (current) use of anticoagulants; R60.9 Edema, unspecified; G62.9 Polyneuropathy, unspecified; I11.0 Hypertensive heart disease with heart failure; I50.9 Heart failure, unspecified; F10.10 Alcohol abuse, uncomplicated; M06.9 Rheumatoid arthritis, unspecified; I77.810 Thoracic aortic ectasia; R79.1 Abnormal coagulation profile; D12.2 Benign neoplasm of ascending colon; D12.5 Benign neoplasm of sigmoid colon; R19.7 Diarrhea, unspecified; R53.1 Weakness
CPT/HCPCS: 00811; 36415; 36430; 45380; 74174; 80048; 80053; 82270; 83735; 84100; 85018; 85025; 85027; 85610; 86850; 86900; 86901; 86922; 87045; 87046; 87427; 87493; 87505; 88305; 93005; 97116; 97162; 97165; 97530; 99100; 99284; 99285; A9270; J1940; J2704; J3430; J7030; P9016; Q9967

== ENCOUNTER 2025-05-07 14:25 | Outpatient (CLI) | payer MEDICARE, SELFPAY | END 2025-05-07 14:26 | disposition home or self-care (01) | PROVIDERS: PCP Family Medicine; Visit Provider Family Medicine | DX: I48.11 Longstanding persistent atrial fibrillation (principal); M1A.00X0 Idiopathic chronic gout, unspecified site, without tophus (tophi) | CPT/HCPCS: 84439; 84550 ==

== ENCOUNTER 2025-06-16 23:35 | Outpatient (CLI) | payer MEDICARE, SELFPAY | END 2025-06-16 23:36 | disposition home or self-care (01) | LOC: AMB 06-19 08:56 | PROVIDERS: PCP Family Medicine; Visit Provider Emergency Medicine Emergency Medical Services | DX: I46.9 Cardiac arrest, cause unspecified (principal) | CPT/HCPCS: A0429 ==